=== PATIENT | female | born 1940 | race Caucasian/White ===

== ENCOUNTER 2016-09-09 12:31 | Observation (INO) | payer MEDICARE, BC ==
[~2016-09-09] VITALS: Ht 167.6 cm; Wt 90.0 kg
[~2016-09-09 12:31] MED LIST: ALEVE220 M2 PO; AMLODIPINE BESYL5 MG PO; AMLODIPINE10 MG PO; AMLODIPINE5 MG PO; AUGMENTIN500TAB PO; BACTRIM DS1 TAB PO; BENICAR20 MG PO; BYSTOLIC5 MG PO; CALCIUM600 M3 PO; CIPROFLOXACN500 MG PO; COREG6.25 MG PO; DUONEB IN; ENALAPRIL5 MG PO; FLEXERIL10 MG PO; FLUARIX QUADRIV1 INJ IM; FLULAVAL IM; FLUZONE SPLT1 M1 IM; FUROSEMIDE40 MG PO; GUANFACINE1 MG PO; HYDRALAZINE25 MG PO; IPRATROPIU0.5 MG/3 M IN; K-DUR/KLOR-CON10 MEQ PO; KEFLEX500 M1 PO; KLOR-CON 1010 ME1 PO; LASIX 40 MG TAB40 MG PO; LASIX 40 MG40 MG/TAB PO; LASIX20 MG PO; LEVOTHYROXIN50 MCG PO; LIPITOR10 MG PO; LIPITOR20 MG PO; LISINOPRIL10 MG PO; LORTAB 7.5 PO; LOSARTAN POT50 MG PO; MAXZIDE-2537.5 MG/TA PO; MEDROL4 M1 PO; METOPROL TAR25 M1 PO; MULTI FOR HER 50+ PO; NORVASC10 M1 PO; NORVASC10 MG PO; PANTOPRAZOLE SO40 MG PO; PERCOCET1 TA2 PO; POT CHLORIDE10 ME1 PO; PRILOSEC20 MG/CAP PO; PRILOSEC40 MG PO; PROMETHAZINE-DM PO; ROBITUSSIN DM OR; SYMBICORT 80-4.5MCG; SYMBICORT1 AE1 IN; TRAMADOL HCL50 MG PO; ULTRAM50 M1 PO; VITAMIN D400 UNI2 PO; ZITHROMAX250 MG PO; ZOVIRAX800 MG PO; [UNRECOGNIZED DRUG - OTHER]
[2016-09-09 13:19] LABS: HEMATOCRIT 42.2 % (37.0-47.0); HEMOGLOBIN 13.9 g/dl (12.0-16.0); IMMATURE GRANULOCYTES 0.2 % (0.0-1.0); MEAN CELL VOLUME 87.4 fL CALC (80.0-100.0); MEAN CORPUSCULAR HGB 28.8 pG CALC (26.0-32.0); MEAN CORPUSCULAR HGB CONC 32.9 g/L CALC (32.0-36.0); NEUT# 6.22 thou/uL (2.00-7.15); RED BLOOD COUNT 4.83 mill/uL (4.20-5.60); RED CELL DISTRI WIDTH 13.1 % (11.5-15.5)
[2016-09-09 13:34] LABS: ALKALINE PHOSPHATASE 88 u/l (38-126); ANION GAP 14 (6-22 (CALC)); BILIRUBIN, TOTAL 0.6 mg/dL (0.0-1.4); BUN 14 mg/dL (8-23); BUN/CREATININE RATIO 14 (12-20 (CALC)); CARBON DIOXIDE 30 mmol/l (22-30); CHLORIDE 92 mmol/l (95-108); GFR 54 ML/MIN (>=60 (CALC)); GFR FOR AFR.AMER. > 60 ML/MIN (>=60 (CALC)); GLUCOSE 96 mg/dL (82-115); POTASSIUM 4.2 mmol/l (3.5-5.1); SGOT/AST 28 u/l (9-36); SGPT/ALT 26 u/l (11-66); SODIUM 132 mmol/l (137-146); TOTAL PROTEIN 6.9 g/dL (6.3-8.2)
[2016-09-09 13:45] LABS: MYOGLOBIN 95 ng/mL (0 - 62)
[2016-09-09 15:00] LABS: URINE BILIRUBIN - DIPSTICK NEGATIVE (NEGATIVE); URINE BLOOD DIPSTICK NEGATIVE (NEGATIVE); URINE COLOR YELLOW; URINE GLUCOSE - DIPSTICK NEGATIVE (NEGATIVE); URINE KETONE NEGATIVE (NEGATIVE); URINE NITRITE - DIPSTICK NEGATIVE (Negative); URINE PROTEIN - DIPSTICK NEGATIVE (NEG-TRACE); URINE SPECIFIC GRAVITY <=1.005; URINE UROBILINOGEN - DIPSTICK 0.2 E.U./dL (0.2)
[2016-09-09 15:34] LABS: URINE CLARITY TURBID; URINE LEUK ESTERASE SMALL (NEGATIVE)
[2016-09-09 15:44] LABS: URINE BACTERIA RARE hpf; URINE SQUAMOUS EPITHELIAL CELL FEW EPI/hpf (0-FEW)
[2016-09-09 17:11] VITALS: BP 173/71
[2016-09-09 19:45] VITALS: BP 142/76
[2016-09-10 00:19] VITALS: BP 156/63
[2016-09-10 04:45] VITALS: BP 142/71
[2016-09-10 06:46] LABS: ANION GAP 12 (6-22 (CALC)); BUN 13 mg/dL (8-23); BUN/CREATININE RATIO 12 (12-20 (CALC)); CALCIUM 8.7 mg/dL (8.4-10.2); CALCULATED LDLCHOLESTEROL 117 mg/dL (62-129 (CALC)); CARBON DIOXIDE 29 mmol/l (22-30); CHLORIDE 94 mmol/l (95-108); GFR 54 ML/MIN (>=60 (CALC)); GFR FOR AFR.AMER. > 60 ML/MIN (>=60 (CALC)); GLUCOSE 98 mg/dL (82-115); HDL CHOLESTEROL 41 mg/dL (>=40); SODIUM 132 mmol/l (137-146); TOTAL CHOLESTEROL 191 mg/dl (0-199); TOTAL TRIGLYCERIDES 166 mg/dl (30-149); VLDL CHOLESTROL 33 mg/dl (0-48 (CALC))
[2016-09-10 06:53] LABS: HEMATOCRIT 41.7 % (37.0-47.0); HEMOGLOBIN 13.7 g/dl (12.0-16.0); IMMATURE GRANULOCYTES 0.4 % (0.0-1.0); MEAN CELL VOLUME 87.8 fL CALC (80.0-100.0); MEAN CORPUSCULAR HGB 28.8 pG CALC (26.0-32.0); MEAN CORPUSCULAR HGB CONC 32.9 g/L CALC (32.0-36.0); NEUT# 5.57 thou/uL (2.00-7.15); RED BLOOD COUNT 4.75 mill/uL (4.20-5.60); RED CELL DISTRI WIDTH 12.8 % (11.5-15.5)
[2016-09-10 08:32] VITALS: BP 135/70
[2016-09-10 14:00] VITALS: BP 161/81
== END 2016-09-10 15:15 | disposition home or self-care (01) ==
LOC: ENPENDDIS → ED 12:31 → ED-I 14:30 → ED 14:50 → MS2 14:51
PROVIDERS: Emergency Medicine; ADMIT Internal Medicine; ATTEND Internal Medicine
DX: R07.9 Chest pain, unspecified (principal); N39.0 Urinary tract infection, site not specified; I10 Essential (primary) hypertension; J44.9 Chronic obstructive pulmonary disease, unspecified; K21.9 Gastro-esophageal reflux disease without esophagitis; M25.512 Pain in left shoulder; R06.02 Shortness of breath

== ENCOUNTER 2016-12-22 20:10 | Emergency (ER) | payer MEDICARE, BC ==
[~2016-12-22] VITALS: Ht 167.6 cm; Wt 89.8 kg
[2016-12-22] MEDS ORDERED: VALSARTAN320 MG PO (20:54)
[2016-12-22] MEDS ORDERED: ALDACTONE25 MG PO (20:54)
[2016-12-22] MEDS ORDERED: LEVOTHYROXIN50 MCG PO (20:55)
[2016-12-22] MEDS ORDERED: COMBIVENT RESPIMAT IN (21:02)
[2016-12-22 21:15] LABS: URINE BILIRUBIN - DIPSTICK NEGATIVE (NEGATIVE); URINE BLOOD DIPSTICK NEGATIVE (NEGATIVE); URINE CLARITY CLEAR; URINE COLOR YELLOW; URINE GLUCOSE - DIPSTICK NEGATIVE (NEGATIVE); URINE KETONE NEGATIVE (NEGATIVE); URINE NITRITE - DIPSTICK NEGATIVE (Negative); URINE PROTEIN - DIPSTICK NEGATIVE (NEG-TRACE); URINE UROBILINOGEN - DIPSTICK 0.2 E.U./dL (0.2)
[2016-12-22 21:19] LABS: BARBITURATES NEGATIVE (NEGATIVE); COCAINE NEGATIVE (NEGATIVE); METHADONE NEGATIVE (NEGATIVE); OXCYCODONE NEGATIVE (NEGATIVE); TETRAHYDROCANNABIONOL NEGATIVE (NEGATIVE); TRICYLIC ANTIDEPRESSANTS NEGATIVE (NEGATIVE); URINE LEUK ESTERASE NEGATIVE (NEGATIVE)
[2016-12-22 21:47] LABS: HEMATOCRIT 45.3 % (37.0-47.0); HEMOGLOBIN 14.9 g/dl (12.0-16.0); IMMATURE GRANULOCYTES 0.3 % (0.0-1.0); MEAN CELL VOLUME 88.1 fL CALC (80.0-100.0); MEAN CORPUSCULAR HGB CONC 32.9 g/L CALC (32.0-36.0); NEUT# 7.22 thou/uL (2.00-7.15); RED BLOOD COUNT 5.14 mill/uL (4.20-5.60); RED CELL DISTRI WIDTH 12.8 % (11.5-15.5)
[2016-12-22 22:01] LABS: ALBUMIN 4.6 g/dL (3.2-5.0); ALKALINE PHOSPHATASE 103 u/l (38-126); ANION GAP 18 (6-22 (CALC)); BILIRUBIN, TOTAL 0.4 mg/dL (0.0-1.4); BUN 15 mg/dL (8-23); BUN/CREATININE RATIO 12 (12-20 (CALC)); CALCIUM 9.6 mg/dL (8.4-10.2); CARBON DIOXIDE 25 mmol/l (22-30); CHLORIDE 99 mmol/l (95-108); CREATININE 1.2 mg/dL (0.5-1.0); GFR 43 ML/MIN (>=60 (CALC)); GFR FOR AFR.AMER. 53 ML/MIN (>=60 (CALC)); GLUCOSE 92 mg/dL (82-115); POTASSIUM 4.2 mmol/l (3.5-5.1); SGOT/AST 25 u/l (9-36); SGPT/ALT 31 u/l (11-66); SODIUM 138 mmol/l (137-146); TOTAL PROTEIN 7.5 g/dL (6.3-8.2)
[2016-12-22 22:13] LABS: MYOGLOBIN 92 ng/mL (0 - 62)
[2016-12-22 23:30] VITALS: BP 160/78
== END 2016-12-22 23:30 | disposition home or self-care (01) ==
LOC: ED 20:10
PROVIDERS: Emergency Medicine
DX: R53.1 Weakness (principal); J44.9 Chronic obstructive pulmonary disease, unspecified; I10 Essential (primary) hypertension; K21.9 Gastro-esophageal reflux disease without esophagitis; K44.9 Diaphragmatic hernia without obstruction or gangrene

== ENCOUNTER 2017-06-05 23:05 | Emergency (ER) | payer MEDICARE, BC ==
[~2017-06-05] VITALS: Ht 167.6 cm; Wt 85.0 kg
[~2017-06-05 23:05] MED LIST changes: +ALDACTONE25 MG PO; +COMBIVENT RESPIMAT IN; +VALSARTAN320 MG PO
[2017-06-05 23:44] LABS: HEMATOCRIT 45.7 % (37.0-47.0); HEMOGLOBIN 15.2 g/dl (12.0-16.0); IMMATURE GRANULOCYTES 0.4 % (0.0-1.0); MEAN CELL VOLUME 87.9 fL CALC (80.0-100.0); MEAN CORPUSCULAR HGB 29.2 pG CALC (26.0-32.0); MEAN CORPUSCULAR HGB CONC 33.3 g/L CALC (32.0-36.0); NEUT# 8.26 thou/uL (2.00-7.15); RED BLOOD COUNT 5.2 mill/uL (4.20-5.60); RED CELL DISTRI WIDTH 12.6 % (11.5-15.5)
[2017-06-05 23:50] LABS: ALBUMIN 4.7 g/dL (3.2-5.0); ALKALINE PHOSPHATASE 103 u/l (38-126); ANION GAP 17 (6-22 (CALC)); BILIRUBIN, TOTAL 0.5 mg/dL (0.0-1.4); BUN 13 mg/dL (8-23); BUN/CREATININE RATIO 11 (12-20 (CALC)); CALCIUM 10.7 mg/dL (8.4-10.2); CARBON DIOXIDE 28 mmol/l (22-30); CHLORIDE 94 mmol/l (95-108); CREATININE 1.2 mg/dL (0.5-1.0); GFR 43 ML/MIN (>=60 (CALC)); GFR FOR AFR.AMER. 53 ML/MIN (>=60 (CALC)); GLUCOSE 123 mg/dL (82-115); POTASSIUM 4.6 mmol/l (3.5-5.1); SGOT/AST 29 u/l (9-36); SGPT/ALT 33 u/l (11-66); SODIUM 135 mmol/l (137-146); TOTAL PROTEIN 7.6 g/dL (6.3-8.2)
[2017-06-06 00:02] LABS: MYOGLOBIN 123 ng/mL (0 - 62)
[2017-06-06] MEDS ORDERED: ZPAK PO (01:24)
[2017-06-06] MEDS ORDERED: MEDDOSEPAK PO (01:24)
[2017-06-06 01:55] VITALS: BP 182/89
== END 2017-06-06 01:55 | disposition home or self-care (01) ==
LOC: ED 23:05
PROVIDERS: Emergency Medicine
DX: J04.0 Acute laryngitis (principal); J06.9 Acute upper respiratory infection, unspecified; R05 Cough; R06.02 Shortness of breath; R49.0 Dysphonia; I10 Essential (primary) hypertension

== ENCOUNTER 2018-04-27 11:22 | Emergency (ER) | payer MEDICARE, BC ==
[~2018-04-27] VITALS: Ht 167.6 cm; Wt 88.6 kg
[~2018-04-27 11:22] MED LIST changes: +ASPIRIN81 MG PO; +LEVAQUIN750 M1 PO; +MEDDOSEPAK PO; +ZPAK PO
[2018-04-27] MEDS ORDERED: LOSARTAN POT100 MG PO (11:43)
[2018-04-27 12:36] LABS: HEMATOCRIT 42.4 % (37.0-47.0); HEMOGLOBIN 13.8 g/dl (12.0-16.0); IMMATURE GRANULOCYTES 0.3 % (0.0-5.0); MEAN CELL VOLUME 86.7 fL CALC (80.0-100.0); MEAN CORPUSCULAR HGB 28.2 pG CALC (26.0-32.0); MEAN CORPUSCULAR HGB CONC 32.5 g/L CALC (32.0-36.0); NEUT# 8.69 thou/uL (2.00-7.15); RED BLOOD COUNT 4.89 mill/uL (4.20-5.60); RED CELL DISTRI WIDTH 13.1 % (11.5-15.5)
[2018-04-27 12:36] LABS: URINE BILIRUBIN - DIPSTICK NEGATIVE (NEGATIVE); URINE BLOOD DIPSTICK NEGATIVE (NEGATIVE); URINE COLOR YELLOW; URINE GLUCOSE - DIPSTICK NEGATIVE (NEGATIVE); URINE KETONE NEGATIVE (NEGATIVE); URINE LEUK ESTERASE TRACE (NEGATIVE); URINE NITRITE - DIPSTICK NEGATIVE (Negative); URINE PROTEIN - DIPSTICK NEGATIVE (NEG-TRACE); URINE UROBILINOGEN - DIPSTICK 0.2 E.U./dL (0.2)
[2018-04-27 12:48] LABS: URINE CLARITY CLEAR
[2018-04-27 12:49] LABS: ALBUMIN 4.2 g/dL (3.2-5.0); BILIRUBIN, TOTAL 0.9 mg/dL (0.0-1.4); CREATININE 1.1 mg/dL (0.5-1.0); POTASSIUM 4.8 mmol/l (3.5-5.1); TOTAL PROTEIN 6.9 g/dL (6.3-8.2)
[2018-04-27] MEDS ORDERED: MAGNESIUM296 ML/BTL PO (12:57)
[2018-04-27] MEDS ORDERED: MIRALAX3350 N1 PO (12:57)
[2018-04-27 13:31] VITALS: BP 170/87
== END 2018-04-27 13:30 | disposition home or self-care (01) ==
LOC: ED 11:22
PROVIDERS: Family Medicine
DX: K59.00 Constipation, unspecified (principal); R10.84 Generalized abdominal pain; R06.02 Shortness of breath; I10 Essential (primary) hypertension; K64.4 Residual hemorrhoidal skin tags

== ENCOUNTER → 2018-08-20 | Outpatient (REF) | payer MEDICARE, BC ==
[~2018-08-20] MED LIST changes: +LOSARTAN POT100 MG PO; +MAGNESIUM296 ML/BTL PO; +MIRALAX3350 N1 PO
[2018-08-20 09:28] LABS: HEMATOCRIT 43.1 % (37.0-47.0); HEMOGLOBIN 13.5 g/dl (12.0-16.0); MEAN CELL VOLUME 90.9 fL CALC (80.0-100.0); MEAN CORPUSCULAR HGB 28.5 pG CALC (26.0-32.0); MEAN CORPUSCULAR HGB CONC 31.3 g/L CALC (32.0-36.0); RED BLOOD COUNT 4.74 mill/uL (4.20-5.60); RED CELL DISTRI WIDTH 13.4 % (11.5-15.5)
[2018-08-20 09:35] LABS: ALKALINE PHOSPHATASE 87 u/l (38-126); ANION GAP 14 (6-22 (CALC)); BILIRUBIN, TOTAL 0.5 mg/dL (0.0-1.4); BUN 15 mg/dL (8-23); BUN/CREATININE RATIO 17 (12-20 (CALC)); CALCULATED LDLCHOLESTEROL 130 mg/dL (62-129 (CALC)); CARBON DIOXIDE 34 mmol/l (22-30); CHLORIDE 94 mmol/l (95-108); CHOLESTEROL HDL RATIO 3.7 (<4.4 (CALC)); CREATININE 0.9 mg/dL (0.5-1.0); GFR 60 ML/MIN (>=60 (CALC)); GFR FOR AFR.AMER. > 60 ML/MIN (>=60 (CALC)); HDL CHOLESTEROL 54 mg/dL (>=40); POTASSIUM 4.4 mmol/l (3.5-5.1); SGOT/AST 20 u/l (9-36); SODIUM 138 mmol/l (137-146); TOTAL CHOLESTEROL 201 mg/dl (0-199); TOTAL PROTEIN 6.2 g/dL (6.3-8.2); TOTAL TRIGLYCERIDES 87 mg/dl (30-149); VLDL CHOLESTROL 17 mg/dl (0-48 (CALC))
== END | disposition home or self-care (01) ==
LOC: LAB 07:52
PROVIDERS: ATTEND Internal Medicine
DX: E03.9 Hypothyroidism, unspecified (principal); I10 Essential (primary) hypertension; J44.9 Chronic obstructive pulmonary disease, unspecified; J96.11 Chronic respiratory failure with hypoxia

== ENCOUNTER 2018-09-21 12:59 | Emergency (ER) | payer MEDICARE, BC ==
[~2018-09-21] VITALS: Ht 167.6 cm; Wt 90.0 kg
[2018-09-21 13:47] LABS: HEMATOCRIT 39.8 % (37.0-47.0); HEMOGLOBIN 12.2 g/dl (12.0-16.0); IMMATURE GRANULOCYTES 0.4 % (0.0-5.0); MEAN CELL VOLUME 91.3 fL CALC (80.0-100.0); MEAN CORPUSCULAR HGB CONC 30.7 g/L CALC (32.0-36.0); NEUT# 6.1 thou/uL (2.00-7.15); RED BLOOD COUNT 4.36 mill/uL (4.20-5.60)
[2018-09-21 13:58] LABS: ALKALINE PHOSPHATASE 68 u/l (38-126); ANION GAP 12 (6-22 (CALC)); BILIRUBIN, TOTAL 0.5 mg/dL (0.0-1.4); BUN 16 mg/dL (8-23); BUN/CREATININE RATIO 17 (12-20 (CALC)); CARBON DIOXIDE 33 mmol/l (22-30); CHLORIDE 93 mmol/l (95-108); CREATININE 0.9 mg/dL (0.5-1.0); GFR 60 ML/MIN (>=60 (CALC)); GFR FOR AFR.AMER. > 60 ML/MIN (>=60 (CALC)); POTASSIUM 4.2 mmol/l (3.5-5.1); SGOT/AST 35 u/l (9-36); SODIUM 133 mmol/l (137-146); TOTAL PROTEIN 6.5 g/dL (6.3-8.2)
[2018-09-21 15:27] LABS: URINE BILIRUBIN - DIPSTICK NEGATIVE (NEGATIVE); URINE BLOOD DIPSTICK NEGATIVE (NEGATIVE); URINE COLOR YELLOW; URINE GLUCOSE - DIPSTICK NEGATIVE (NEGATIVE); URINE KETONE NEGATIVE (NEGATIVE); URINE LEUK ESTERASE NEGATIVE (NEGATIVE); URINE NITRITE - DIPSTICK NEGATIVE (Negative); URINE PH 7.5 (4.5-8.0); URINE PROTEIN - DIPSTICK NEGATIVE (NEG-TRACE); URINE UROBILINOGEN - DIPSTICK 0.2 E.U./dL (0.2)
[2018-09-21] MEDS ORDERED: KEFLEX500 M1 PO (15:45)
[2018-09-21 16:27] VITALS: BP 154/60
== END 2018-09-21 16:27 | disposition home or self-care (01) ==
LOC: ED 12:59
PROVIDERS: Emergency Medicine
DX: N39.0 Urinary tract infection, site not specified (principal); R53.1 Weakness; R20.2 Paresthesia of skin; R06.02 Shortness of breath; I10 Essential (primary) hypertension

== ENCOUNTER 2018-10-05 23:54 | Emergency (ER) | payer MEDICARE, BC ==
[~2018-10-05] VITALS: Ht 167.6 cm; Wt 90.9 kg
[2018-10-06 00:48] LABS: HEMOGLOBIN 12.6 g/dl (12.0-16.0); IMMATURE GRANULOCYTES 0.3 % (0.0-5.0); MEAN CELL VOLUME 88.4 fL CALC (80.0-100.0); MEAN CORPUSCULAR HGB 28.6 pG CALC (26.0-32.0); MEAN CORPUSCULAR HGB CONC 32.3 g/L CALC (32.0-36.0); NEUT# 6.64 thou/uL (2.00-7.15); RED BLOOD COUNT 4.41 mill/uL (4.20-5.60); RED CELL DISTRI WIDTH 12.8 % (11.5-15.5)
[2018-10-06 01:23] LABS: ALBUMIN 4.4 g/dL (3.2-5.0); ALKALINE PHOSPHATASE 94 u/l (38-126); ANION GAP 14 (6-22 (CALC)); BILIRUBIN, TOTAL 0.5 mg/dL (0.0-1.4); BUN 20 mg/dL (8-23); BUN/CREATININE RATIO 23 (12-20 (CALC)); CARBON DIOXIDE 31 mmol/l (22-30); CHLORIDE 89 mmol/l (95-108); CREATININE 0.9 mg/dL (0.5-1.0); GFR 60 ML/MIN (>=60 (CALC)); GFR FOR AFR.AMER. > 60 ML/MIN (>=60 (CALC)); POTASSIUM 4.5 mmol/l (3.5-5.1); SGOT/AST 29 u/l (9-36); SODIUM 130 mmol/l (137-146); TOTAL PROTEIN 6.9 g/dL (6.3-8.2)
[2018-10-06 01:27] LABS: URINE BILIRUBIN - DIPSTICK NEGATIVE (NEGATIVE); URINE BLOOD DIPSTICK NEGATIVE (NEGATIVE); URINE COLOR YELLOW; URINE GLUCOSE - DIPSTICK NEGATIVE (NEGATIVE); URINE KETONE NEGATIVE (NEGATIVE); URINE LEUK ESTERASE NEGATIVE (NEGATIVE); URINE NITRITE - DIPSTICK NEGATIVE (Negative); URINE PH 7.5 (4.5-8.0); URINE PROTEIN - DIPSTICK NEGATIVE (NEG-TRACE); URINE UROBILINOGEN - DIPSTICK 0.2 E.U./dL (0.2)
[2018-10-06 01:36] LABS: MYOGLOBIN 70 ng/mL (0 - 62)
[2018-10-06 04:00] VITALS: BP 155/65
== END 2018-10-06 04:15 | disposition home or self-care (01) ==
LOC: ED 23:54
PROVIDERS: Emergency Medicine
DX: J44.1 Chronic obstructive pulmonary disease with (acute) exacerbation (principal); I50.9 Heart failure, unspecified; I10 Essential (primary) hypertension; R06.02 Shortness of breath

== ENCOUNTER 2019-08-26 16:55 | Inpatient (IN) | payer MEDICARE, BC ==
[~2019-08-26] VITALS: Ht 167.6 cm; Wt 90.0 kg
--- NOTE | 2019-08-26 16:59 | NUR ---
PT TO ROOM VIA WC FOR BEDSIDE TRIAGE
[2019-08-26] MEDS ORDERED: AZITHROMYCIN500 MG PO (17:24)
--- NOTE | 2019-08-26 17:30 | NUR ---
PUREWICK PLACED AT THIS TIME; PT STATES SOB HAS IMPROVED; VSS; FAMILY AT BEDSIDE; DENIES ANY NEEDS AT THIS TIME; PT ADVISED OF CONTINUED WAIT TIME; WILL CONTINUE TO MONITOR
[2019-08-26 17:59] LABS: HEMATOCRIT 43.7 % (37.0-47.0); HEMOGLOBIN 13.8 g/dl (12.0-16.0); IMMATURE GRANULOCYTES 0.3 % (0.0-5.0); MEAN CELL VOLUME 89.5 fL CALC (80.0-100.0); MEAN CORPUSCULAR HGB 28.3 pG CALC (26.0-32.0); MEAN CORPUSCULAR HGB CONC 31.6 g/L CALC (32.0-36.0); NEUT# 4.28 thou/uL (2.00-7.15); RED BLOOD COUNT 4.88 mill/uL (4.20-5.60)
--- NOTE | 2019-08-26 18:30 | NUR ---
PT RESTING ON STRETCHER; NO S/S OF DISTRESS NOTED; VSS; PT DENIES ANY NEEDS AT THIS TIME; WILL CONTINUE TO MONITOR
[2019-08-26 18:42] LABS: ALBUMIN 4.1 g/dL (3.2-5.0); ALKALINE PHOSPHATASE 97 u/l (38-126); ANION GAP 10 (6-22 (CALC)); BILIRUBIN, TOTAL 0.4 mg/dL (0.0-1.4); BUN 15 mg/dL (8-23); BUN/CREATININE RATIO 16 (12-20 (CALC)); CARBON DIOXIDE 35 mmol/l (22-30); CHLORIDE 93 mmol/l (95-108); CREATININE 0.9 mg/dL (0.5-1.0); GFR 60 ML/MIN (>=60 (CALC)); GFR FOR AFR.AMER. > 60 ML/MIN (>=60 (CALC)); POTASSIUM 3.8 mmol/l (3.5-5.1); SGOT/AST 24 u/l (9-36); SODIUM 134 mmol/l (137-146); TOTAL PROTEIN 6.7 g/dL (6.3-8.2)
--- NOTE | 2019-08-26 18:49 | NUR ---
REPORT TO CAREY, RN
--- NOTE | 2019-08-26 19:05 | NUR ---
A/O F DENIES CP OCC TRACK ANNOUNCER COUGH W/P/D SKIN SR NO ECTOPY
[2019-08-26] MEDS ORDERED: GABAPENTIN100 MG PO (19:30)
--- NOTE | 2019-08-26 20:00 | NUR ---
PHONE REPORT TO NURSE PATRICIA
--- NOTE | 2019-08-26 20:05 | NUR ---
TO ICU2 IN STABLE CONDITION
[2019-08-26 20:15] VITALS: BP 170/76
--- NOTE | 2019-08-26 20:15 | NUR ---
REPORT GIVEN BY CAREY RN FROM ER. PATIENT ARRIVED VIA STRECHER WITH FAMILY AT THE BEDSIDE. RESP LABORED AND EVEN. PRODUCTIVE COUGH PRESENT WITH GREEN COLORED SPUTUM, 2L O2 VIA NC. PUREWICK IN PLACE, CLEAR YELLOW URINE DRAINING. PATIENT STATES WHILING URINIATING SHE HAS BURNING. . ORIENTED TO ROOM, CALL LIGHT, AND BED. FALL PRECAUTIONS IN PLACE. ALLERGY BAND IN PLACE. MANUEL PLACED ON PATIENT. PLAN OF CARE DISCUSSED. PATIENT INFORMED TO CALL WITH ANY QUESTIONS OR CONCERNS.
--- NOTE | 2019-08-26 20:16 | NUR ---
PATIENT ARRIVED AT 2014
[2019-08-26 20:52] LABS: URINE BILIRUBIN - DIPSTICK NEGATIVE (NEGATIVE); URINE BLOOD DIPSTICK NEGATIVE (NEGATIVE); URINE COLOR YELLOW; URINE GLUCOSE - DIPSTICK NEGATIVE (NEGATIVE); URINE KETONE NEGATIVE (NEGATIVE); URINE LEUK ESTERASE NEGATIVE (NEGATIVE); URINE NITRITE - DIPSTICK NEGATIVE (Negative); URINE PROTEIN - DIPSTICK NEGATIVE (NEG-TRACE); URINE UROBILINOGEN - DIPSTICK 0.2 E.U./dL (0.2)
--- NOTE | 2019-08-26 22:30 | NUR ---
DAUGHTER CALLED AND LEFT PHONE NUMBER FOR NURSE TO CALL IF NEEDED. CARMELLA BRADY [phone]
[2019-08-27] VITALS: BP 169/72
--- NOTE | 2019-08-27 00:26 | NUR ---
PURE WICK LEAKED, PATIENT CLEANED UP. RESP LABORED AND EVEN. PATIENT STATES SHE IS STILL HAVING SOB, O2 SAT 98%.
[2019-08-27 04:00] VITALS: BP 176/70
--- NOTE | 2019-08-27 04:27 | NUR ---
PATIENT UP TO BSC, SHE HAD A LARGE BM. RESP EVEN AND UNLABORED. NO S/S OF DISTRESS NOTED.
[2019-08-27 05:00] LABS: HEMATOCRIT 47.5 % (37.0-47.0); HEMOGLOBIN 14.8 g/dl (12.0-16.0); IMMATURE GRANULOCYTES 0.7 % (0.0-5.0); MEAN CORPUSCULAR HGB CONC 31.2 g/L CALC (32.0-36.0); NEUT# 6.35 thou/uL (2.00-7.15); RED BLOOD COUNT 5.28 mill/uL (4.20-5.60); RED CELL DISTRI WIDTH 12.9 % (11.5-15.5)
[2019-08-27 05:24] LABS: ALBUMIN 4.2 g/dL (3.2-5.0); ALKALINE PHOSPHATASE 92 u/l (38-126); ANION GAP 12 (6-22 (CALC)); BILIRUBIN, TOTAL 0.4 mg/dL (0.0-1.4); BUN 13 mg/dL (8-23); BUN/CREATININE RATIO 17 (12-20 (CALC)); CARBON DIOXIDE 32 mmol/l (22-30); CHLORIDE 94 mmol/l (95-108); CREATININE 0.8 mg/dL (0.5-1.0); GFR > 60 ML/MIN (>=60 (CALC)); GFR FOR AFR.AMER. > 60 ML/MIN (>=60 (CALC)); SGOT/AST 23 u/l (9-36); SODIUM 133 mmol/l (137-146); TOTAL PROTEIN 6.8 g/dL (6.3-8.2)
[2019-08-27 05:45] LABS: POTASSIUM 4.6 mmol/l (3.5-5.1)
--- NOTE | 2019-08-27 07:40 | NUR ---
PT RESTING IN BED. NO DISTRESS NOTED. WILL CONTINUE TO MONITOR.
[2019-08-27 08:00] VITALS: BP 188/84
--- NOTE | 2019-08-27 10:00 | NUR ---
DR. QUIROZ AT BEDSIDE TO ASSESS PT. FAMILY AT BEDSIDE. ALL QUESTIONS ANSWERED. NO NEEDS AT THIS TIME
[2019-08-27] MEDS ORDERED: DIOVAN160 MG PO (11:20)
[2019-08-27] MEDS ORDERED: SYMBICORT1 AE1 IN (11:21)
[2019-08-27] MEDS ORDERED: LEVOTHYROXIN50 MCG PO (11:21)
[2019-08-27 12:00] VITALS: BP 172/78
--- NOTE | 2019-08-27 12:40 | NUR ---
PT RESTING IN BED WITH EYES CLOSED. NO DISTRESS NOTED. FAMILY AT BEDSIDE. DENIES PAIN AT THIS TIME. WILL CONTINUE TO MONITOR.
[2019-08-27 16:00] VITALS: BP 153/72
--- NOTE | 2019-08-27 16:14 | NUR ---
PT RESTING IN BED. NO DISTRESS NOTED. VOIDING VIA BEDSIDE COMMODE. AMBULATING X1 ASSIST. WILL CONTINUE TO MONITOR
--- NOTE | 2019-08-27 19:00 | NUR ---
REPORT RECEIVED FROM DAY NURSE. PT RESTING IN BED W/TV ON. FAMILY JUST LEFT. NO S/O DISTRESS, PT DENIES ANY NEEDS. JOHNSON CATHETER DRAINING TO GRAVITY YELLOW URINE. CALL LIGHT AT SIDE W/IN REACH.
--- NOTE | 2019-08-27 20:08 | NUR ---
PT ASSISTED TO BSC AND BACK TO BED. ASSESSMENT COMPLETED AT THIS TIME. LUNG SOUNDS WHEEZING THROUGHOUT. ABD HYPERACTIVE W/TENDERNESS TO MID UPPER ABD. PT REPORTS LAST BM THIS AM TO BE NORMAL. MANUEL HOS[employer] ARE ON. 02NC @4L, TURNED TO 2L PER PT AND FAMILY MEMBER CONFIRMING THAT PT IS ON 2L@HOME. WILL MONITOR FOR OXYGEN SAT LEVELS, 02SAT LEVEL AT 98% AT THIS TIME. FAMILY X1 AT BEDSIDE STATING SHE IS STAYING OVERNIGHT, PILLOW PROVIDED, SITTING IN RECLINER, PT IS IN BED, LIGHTS ARE OFF AND TV ON. CALL LIGHT IN PT HAND AND SHE HAS BEEN INSTRUCTED TO CALL NEEDS ARISE.
[2019-08-27 20:09] VITALS: BP 159/74
--- NOTE | 2019-08-27 22:00 | NUR ---
pt medicated as orders provide. icewater refreshed at this time. resp in to see pt for duoneb treatment. oxygen sat 94% on 2Lnc.
[2019-08-28] VITALS (8 sets, daily range): BP systolic 148–179; BP diastolic 66–92
--- NOTE | 2019-08-28 | NUR ---
V/S ASSESSED. PT WAS SLEEPING, BUT AWOKE TO MY ENTERING ROOM. FAMILY ASLEEP IN RECLINER AT BEDSIDE. PT DENIES ANY OTHER NEEDS AT THIS TIME. CALL LIGHT IS WIN REACH OF PT.
--- NOTE | 2019-08-28 02:26 | NUR ---
Noises heard from room, upon entering room, pt was sitting on bsc and family member was assisting pt. Assistance was offered, they both denied need for assistance, stating they were using the bathroom and getting a snack. No s/o distress noted at this time. Will continue to monitor.
--- NOTE | 2019-08-28 05:47 | NUR ---
PT UP TO BSC. V/S ASSESSED AND PT MEDICATED AND ASSISTED BACK TO BED. GRANDDAUGHTER LEAVING AT THIS TIME. PT REPORTS FEELING AND SLEEPING A LITTLE BETTER LAST NIGHT, BUT APPEARED SOB ON EXERTION.
--- NOTE | 2019-08-28 07:18 | NUR ---
REPORT RECEIVED FROM NIGHT RN. PT RESTING IN BED WITH EYES CLOSED. NO DISTRESS NOTED. WILL CONTINUE TO MONITOR.
--- NOTE | 2019-08-28 10:25 | NUR ---
DR. QUIROZ AT BEDSIDE TO ASSESS PT
--- NOTE | 2019-08-28 12:25 | NUR ---
PT RESTING IN CHAIR. FAMILY AT BEDSIDE. WILL CONTINUE TO MONITOR. NO DISTRESS NOTED
--- NOTE | 2019-08-28 14:15 | NUR ---
PER DR. QUIROZ PT PLACED ON RA AND OXYGEN LEVEL OBSERVED. PY OXYGEN SAT 92-94%
--- NOTE | 2019-08-28 14:30 | NUR ---
PT TRANSFERRED FROM ICU VIA WC WITH STAFF. IV SITE IS FREE FROM REDNESS OR EDEMA. ALL BELONGINGS WITH PT FAMILY IN THE ROOM.
--- NOTE | 2019-08-28 14:45 | NUR ---
PT TRANSFERED TO [facility] IN WHEELCHAIR
--- NOTE | 2019-08-28 16:33 | NUR ---
PT SITTING IN BED WITH FAMILY IN THE ROOM. IV SITE IS FREE FROM REDNESS OR EDEMA.
--- NOTE | 2019-08-28 18:39 | NUR ---
CHECKED BP ON PT IS 179/83 HRT RATE IS 110 PT WAS TRYING TO FIX HER BED TO GET IT UP, ASYMPTOMATIC. CONTINUE TO OSBERVE AND MONITOR.
--- NOTE | 2019-08-28 19:20 | NUR ---
PT SITTING ON SIDE OF THE BED STATING SHE JUST USED BSC. NO S/O DISTRESS AT THIS TIME. ASSESSMENT COMPLETED AT THIS TIME. LUNG SOUNDS ARE CLEAR/DIM FOR ME AT THIS TIME. PT DENIES ANY OTHER NEEDS AND PT HAS BEEN ENCOURAGED TO CALL NEEDS ARISE, CALL LIGHT W/IN REACH.
--- NOTE | 2019-08-28 21:45 | NUR ---
PT MEDICATED ORDERS PROVIDE AND ASSISTED TO BSC AND BACK TO BED. RESP IN TO SEE PT FOR BREATHING TREATMENT. PT LEFT ON SIDE OF THE BED RECEIVING BREATHING TREATMENT. INSTRUCTED PT TO CALL ASSISTANCE IS NEEDED. CALL LIGHT W/IN REACH.
--- NOTE | 2019-08-29 01:25 | NUR ---
PT SITTING ON BSC, DENIES ANY NEED FOR ASSISTANCE AT THIS TIME.
--- NOTE | 2019-08-29 01:32 | NUR ---
ED CALLED TO REPORT PIPE CUTTER NOT READING, PT IS IN BED AWAKE, PIPE CUTTER LEADS PLACED AND ED CONFIRMED GOOD READING.
[2019-08-29 04:00] VITALS: BP 156/83
--- NOTE | 2019-08-29 04:12 | NUR ---
BIOINFORMATICS SUPPORT SPECIALIST REPOSITIONED. PT WAS TRYING TO SLEEP, AIDE WAS JUST IN TO OBTAIN V/S.
--- NOTE | 2019-08-29 05:44 | NUR ---
PT MEDICATED ORDERS PROVIDE DENIES ANY OTHER NEEDS. CALL LIGHT W/IN REACH.
[2019-08-29 07:30] VITALS: BP 155/76
--- NOTE | 2019-08-29 07:30 | NUR ---
ASSESSMENT IS COMPLETED: IV SITE IS FREE FROM REDNESS OR EDEMA. HR IS REG,PULSES ARE STRONG X4, ABD IS SOFT WITH ACTIVE BS. BREATH SOUNDS ARE CLEAR AND DIMINISHED. O2 @ 2LITERS WITH NC. TELE MONITOR IN PLACE. CONTINUE TO OBSERVE AND MONITOR. PT BECOMES SOB ON EXERTION.
--- NOTE | 2019-08-29 08:40 | NUR ---
OT STAFF IN TO VISIT WITH PT.
--- NOTE | 2019-08-29 10:00 | NUR ---
PT IN TO VISIT WITH PT.
--- NOTE | 2019-08-29 10:54 | NUR ---
SWABBED PT FOR STREP . SENT FOR TESTING.
[2019-08-29 11:15] VITALS: BP 135/60
--- NOTE | 2019-08-29 12:00 | NUR ---
PT HAS BEEN RELAXING IN THE CHAIR., WITH FAMILY IN THE ROOM. NO DISTRESS NOTED. IV SITE IS FREE FROM REDNESS OR EDEMA.
[2019-08-29 14:55] VITALS: BP 143/74
--- NOTE | 2019-08-29 16:00 | NUR ---
PT IS RELAXING IN BED WITH NO DISTRESS NOTED. IV SITE IS FREE FROM REDNESS OR EDEMA. FAMILY IN THE ROOM. CONTINUE TO OSBERVE AND MONITOR.
[2019-08-29 19:20] VITALS: BP 143/65
--- NOTE | 2019-08-29 19:59 | NUR ---
PT SITTING IN BED WATCHING TV. A&O X3. NO DISTRESS NOTED. SLIGHT WHEEZING HEARD UPON AUSCULTATION. O2 VIA NC @2L IN PLACE. NO OTHER NEEDS AT THIS TIME. DISCUSSED POC. ASSESSMENT COMPLETED. CALL LIGHT IN REACH. CONTINUE TO MONITOR.
--- NOTE | 2019-08-30 00:04 | NUR ---
PT SLEEPING IN BED. NO DISTRESS NOTED. RESP EVEN AND UNLABORED. CONTINUE TO MONITOR.
[2019-08-30 04:52] VITALS: BP 150/81
[2019-08-30 05:25] LABS: HEMATOCRIT 48.4 % (37.0-47.0); HEMOGLOBIN 14.8 g/dl (12.0-16.0); MEAN CELL VOLUME 90.3 fL CALC (80.0-100.0); MEAN CORPUSCULAR HGB 27.6 pG CALC (26.0-32.0); MEAN CORPUSCULAR HGB CONC 30.6 g/L CALC (32.0-36.0); RED BLOOD COUNT 5.36 mill/uL (4.20-5.60); RED CELL DISTRI WIDTH 12.8 % (11.5-15.5)
[2019-08-30 05:48] LABS: ANION GAP 9 (6-22 (CALC)); BUN 24 mg/dL (8-23); BUN/CREATININE RATIO 24 (12-20 (CALC)); CARBON DIOXIDE 38 mmol/l (22-30); CHLORIDE 90 mmol/l (95-108); GFR 53 ML/MIN (>=60 (CALC)); GFR FOR AFR.AMER. > 60 ML/MIN (>=60 (CALC)); POTASSIUM 4.3 mmol/l (3.5-5.1); SODIUM 132 mmol/l (137-146)
[2019-08-30 11:02] VITALS: BP 120/71
--- NOTE | 2019-08-30 11:25 | NUR ---
Physical Therapy Visit Note Patient identified by name and date of . PT Management: 1. Active range of motion of both UE x 10 repetitions. 2. Actice range of motion of both LE x 10 repetitions. 3. Sit and stand with minimal assist x 4 repetitions 4. Transfer training 5. Gait training with three-wheeled walker inside the room (20 to 30 feet). Patient was able to perform all exercises with minimal fatigue. Minimal unsteadiness observed while trying to sit and stand, transfer and walk. SO2 remained above 88% throughout physical therapy session. Patient advised to ask for assistance when transferring. Patient verbalized understanding. Call button left near the patient after physical therapy session.
[2019-08-30] MEDS ORDERED: PREDNISONE10 MG PO (12:06)
--- NOTE | 2019-08-30 14:38 | NUR ---
DISCHARGE INSTRUCTIONS REVIEWED WITH PT AND DAUGHTER AND BOTH IN AGREEMENT WITH THE PLANS. IV REMOVED WITHOUT PROBLEMS AND SITE INTACT. QUESTIONS ANSWERED AND SUPPORT GIVEN. PT DISCHARGED BY WHEELCHAIR TO FAMILY CAR AND HER HOME O2 TANK IN USE AT 2L NASAL CANULA.
== END 2019-08-30 14:40 | disposition home health service (06) | DRG 190 ==
LOC: ED 16:55 → ED-I 18:51 → ED 19:03 → ICU 19:04 → MS2 08-27 14:15
PROVIDERS: Family Medicine; Internal Medicine; ADMIT Internal Medicine; ATTEND Internal Medicine
DX: J43.9 Emphysema, unspecified (principal); J96.22 Acute and chronic respiratory failure with hypercapnia; J96.21 Acute and chronic respiratory failure with hypoxia; I13.0 Hypertensive heart and chronic kidney disease with heart failure and stage 1 through stage 4 chronic kidney disease, or unspecified chronic kidney disease; I50.9 Heart failure, unspecified; N18.2 Chronic kidney disease, stage 2 (mild); D72.829 Elevated white blood cell count, unspecified; T38.0X5A Adverse effect of glucocorticoids and synthetic analogues, initial encounter; E03.9 Hypothyroidism, unspecified; K21.9 Gastro-esophageal reflux disease without esophagitis; G62.9 Polyneuropathy, unspecified; E66.01 Morbid (severe) obesity due to excess calories; G25.81 Restless legs syndrome; Z99.81 Dependence on supplemental oxygen; Z87.891 Personal history of nicotine dependence; Z68.32 Body mass index [BMI] 32.0-32.9, adult

== ENCOUNTER 2020-11-13 22:57 | Observation (INO) | payer MEDICARE, BC ==
[~2020-11-13] VITALS: Ht 167.6 cm; Wt 86.0 kg
[~2020-11-13 22:57] MED LIST changes: +AZITHROMYCIN500 MG PO; +DIOVAN160 MG PO; +GABAPENTIN100 MG PO; +PREDNISONE10 MG PO
--- NOTE | 2020-11-13 22:57 | NUR ---
PT ARRIVED VIA EMS AND WAS IMMEDIATELY TAKEN TO THE TREATMENT AREA IN [facility] ON 2 L NC
--- NOTE | 2020-11-14 | NUR ---
SON AT BEDSIDE AND HAS BEEN UPDATED ON POC.
[2020-11-14 00:06] LABS: HEMATOCRIT 44.8 % (37.0-47.0); HEMOGLOBIN 13.9 g/dl (12.0-16.0); IMMATURE GRANULOCYTES 0.4 % (0.0-5.0); MEAN CELL VOLUME 88.7 fL CALC (80.0-100.0); MEAN CORPUSCULAR HGB 27.5 pG CALC (26.0-32.0); NEUT# 7.54 thou/uL (2.00-7.15); RED BLOOD COUNT 5.05 mill/uL (4.20-5.60); RED CELL DISTRI WIDTH 13.5 % (11.5-15.5)
[2020-11-14 00:27] LABS: ALBUMIN 3.8 g/dL (3.2-5.0); ALKALINE PHOSPHATASE 112 u/l (38-126); ANION GAP 11 (6-22 (CALC)); BILIRUBIN, TOTAL 0.6 mg/dL (0.0-1.4); BUN 23 mg/dL (8-23); BUN/CREATININE RATIO 23 (12-20 (CALC)); CARBON DIOXIDE 34 mmol/l (22-30); CHLORIDE 91 mmol/l (95-108); GFR 53 ML/MIN (>=60 (CALC)); GFR FOR AFR.AMER. > 60 ML/MIN (>=60 (CALC)); SGOT/AST 21 u/l (9-36); SODIUM 132 mmol/l (137-146); TOTAL PROTEIN 6.5 g/dL (6.3-8.2)
[2020-11-14 00:29] LABS: POTASSIUM 4.2 mmol/l (3.5-5.1)
[2020-11-14 00:36] LABS: MYOGLOBIN 61 ng/mL (0 - 62)
--- NOTE | 2020-11-14 01:15 | NUR ---
BRITANY PLACED FOR PT TO VOID
--- NOTE | 2020-11-14 02:12 | NUR ---
PT READY FOR ADMISSION
--- NOTE | 2020-11-14 02:17 | NUR ---
PROVIDED UPDATE TO SON ON MOTHER'S CONDITION [phone] AILYN AYON
[2020-11-14 02:50] VITALS: BP 156/76
--- NOTE | 2020-11-14 02:50 | NUR ---
PT ARRIVED TO MED SURG UNIT VIA STRETCHER ACCOMPANIED BY SENIOR HEALTH EDUCATOR SNOW CRISTINA. PT APPEARS TO BE IN STABLE CONDITION. PT REPORTS THAT SHE CANNOT WALK DUE TO A "BAD BONE ON BONE LEFT HIP" WE TRANSFERRED HER TO THE BED FROM THE STRETCHER AND V/S ASSESSED AT THIS TIME. PT ORIENTED TO CALL SYSTEM, LIGHTS, BED, AND TV.
--- NOTE | 2020-11-14 03:00 | NUR ---
ASSESSMENT AND ADMISSION COMPLETED AT THIS TIME. PUREWICK IS IN PLACE FOR INCONTINENT URINE.
[2020-11-14 04:27] VITALS: BP 150/78
--- NOTE | 2020-11-14 05:24 | NUR ---
RESP IN WITH PT AT THIS TIME ADMINISTERING SCHEDULED DUONEB TREATMENT. URINE SAMPLE COLLECTED FROM [facility] AND SENT TO LAB. PT WAS SLEEPING, AWOKE TO OUR ENTERING THE ROOM AND VOICES. DENIES ANY DISTRESSES AT THIS TIME.
[2020-11-14 06:05] LABS: URINE BILIRUBIN - DIPSTICK NEGATIVE (NEGATIVE); URINE BLOOD DIPSTICK NEGATIVE (NEGATIVE); URINE COLOR YELLOW; URINE GLUCOSE - DIPSTICK NEGATIVE (NEGATIVE); URINE KETONE NEGATIVE (NEGATIVE); URINE LEUK ESTERASE NEGATIVE (NEGATIVE); URINE PH 7.5 (4.5-8.0); URINE PROTEIN - DIPSTICK NEGATIVE (NEG-TRACE); URINE UROBILINOGEN - DIPSTICK 0.2 E.U./dL (0.2)
[2020-11-14 06:25] LABS: URINE NITRITE - DIPSTICK NEGATIVE (Negative)
--- NOTE | 2020-11-14 07:00 | NUR ---
PT REPORT RECEIVED FROM NIGHT NURSEKHAI.
[2020-11-14] MEDS ORDERED: IPRATROPIU0.5 MG/3 M NEB (07:35)
[2020-11-14] MEDS ORDERED: LEVOTHYROXIN25 MC1 PO (07:36)
[2020-11-14] MEDS ORDERED: TRAMADOL HCL50 MG PO (07:36)
[2020-11-14 08:00] VITALS: BP 152/72
--- NOTE | 2020-11-14 08:00 | NUR ---
PT WAS FOUND RESTING IN BED IN SEMI-FOWLERS POSITION;PT IS A&OX3;VS AND ASSESSMENT WERE COMPLETED;PT HAS NO REPORTS OF PAIN AT THIS TIME;HEART SOUNDS ARE REGULAR IN RATE AND RHYTHM;TELE IS IN PLACE;LUNG SOUNDS ARE CLEAR AND DIMINISHED IN THE LOWER LOBES;RESPIRATIONS ARE EVEN AND UNLABORED ON O2@2L VIA NC;PURE WICK IS IN PLACE DRAINING CLEAR YELLOW URINE;#20G IV IN RH IS SL, PATENT AND FREE OF COMPLICATIONS AT THIS TIME;PT HAS 1+ NON-PITTING EDEMA PRESENT IN THE LOWER EXTREMETIES BILATERALLY;SAFETY PRECAUTIONS IN PLACE;CALL LIGHT WITHIN REACH;BED IN LOWEST POSITION;WILL CONTINUE TO MONITOR.
--- NOTE | 2020-11-14 11:05 | NUR ---
AND CORI MCLEOD AT BEDSIDE DISCUSSING POC WITH PT.
--- NOTE | 2020-11-14 12:00 | NUR ---
PT WAS FOUND RESTING IN BED EATING LUNCH;PT IS REPORTING NO NEEDS OR CONCERNS AT THIS TIME;TELE IS IN PLACE;O2@2L VIA NC IS IN PLACE;SAFETY PRECAUTIONS IN PLACE;CALL LIGHT WITHIN REACH;BED IN LOWEST POSITION;PT ASKED TO CALL IF NEEDING ANYTHING;WILL CONTINUE TO MONIOR.
[2020-11-14 15:26] VITALS: BP 142/69
--- NOTE | 2020-11-14 16:00 | NUR ---
PT WAS FOUND NAPPING IN BED;PT AROUSED TO VERBAL STIMULI;PT HAS NO REPORTS OF PAIN AT THIS TIME;TELE IS IN PLACE;O2@2L VIA NC IS IN PLACE;#20G IV IN IS RUNNING NS@10 ML/HR AT THIS TIME;IV SITE APPEARS FREE OF COMPLICATIONS AT THIS TIME;PUREWICK IN PLACE DRAINING CLEAR YELLOW URINE;SAFETY PRECAUTIONS IN PLACE;CALL LIGHT WITHIN REACH;BED IN LOWEST POSITION;WILL CONTINUE TO MONITOR.
[2020-11-14 19:00] VITALS: BP 140/77
--- NOTE | 2020-11-14 20:30 | NUR ---
PT RESTING QUIETLY AT THIS TIME. NO COMPLAINTS VOICED. ALL ASSESSMENTS COMPLETED, PLEASE REFER TO DOCUMENTATION. #20 REMAINS TO R HAND RUNNING NS@10ML/HR. PT COMPLAINED OF PAIN TO L HIP, MEDICATED WITH ULTRAM @ 1918. MEDICATION WAS EFFECTIVE FOR PAIN. SAFETY PRECAUTIONS IN PLACE, BED IN LOWEST POSITION, CALL LIGHT WITHIN REACH. WILL MONITOR
[2020-11-15] VITALS: BP 157/77
--- NOTE | 2020-11-15 00:33 | NUR ---
PT RESTING AT THIS TIME. PREVIOUS C/O PAIN TO LEFT HIP, REPORTS BONE ON BONE PAIN. PT HAS ALREADY HAD HER DOSE OF ULTRAM. WILL MONITOR PAIN LEVELS THROUGHOUT THE SHIFT. SAFETY PRECAUTIONS IN PLACE. WILL MONITOR
[2020-11-15 04:00] VITALS: BP 136/64
[2020-11-15 05:34] LABS: HEMATOCRIT 47.2 % (37.0-47.0); HEMOGLOBIN 14.4 g/dl (12.0-16.0); MEAN CELL VOLUME 89.9 fL CALC (80.0-100.0); MEAN CORPUSCULAR HGB 27.4 pG CALC (26.0-32.0); MEAN CORPUSCULAR HGB CONC 30.5 g/dL CAL (32.0-36.0); RED BLOOD COUNT 5.25 mill/uL (4.20-5.60); RED CELL DISTRI WIDTH 13.2 % (11.5-15.5)
[2020-11-15 05:54] LABS: ANION GAP 9 (6-22 (CALC)); BUN 19 mg/dL (8-23); BUN/CREATININE RATIO 24 (12-20 (CALC)); CARBON DIOXIDE 35 mmol/l (22-30); CHLORIDE 93 mmol/l (95-108); CREATININE 0.8 mg/dL (0.5-1.0); GFR > 60 ML/MIN (>=60 (CALC)); GFR FOR AFR.AMER. > 60 ML/MIN (>=60 (CALC)); MAGNESIUM 2.2 mg/dL (1.6-2.3); POTASSIUM 4.2 mmol/l (3.5-5.1); SODIUM 133 mmol/l (137-146)
--- NOTE | 2020-11-15 06:01 | NUR ---
PT RESTING QUIETLY AT THIS TIME. DENIES PAIN. NO COMPLAINTS VOICED. BREATHING EVEN AND UNLABORED. NO S/S OF DISTRESS NOTED. SAFETY PRECAUTIONS IN PLACE, WILL MONITOR
--- NOTE | 2020-11-15 06:31 | NUR ---
PT RESTING COMFORTABLY. NAD. VSSS. GRAPHIC PRE PRESS TRADES WORKER TO MONITOR.
--- NOTE | 2020-11-15 07:00 | NUR ---
PT REPORT RECEIVED FROM NIGHT NURSEPEYTON
[2020-11-15 07:22] VITALS: BP 139/73
--- NOTE | 2020-11-15 08:00 | NUR ---
PT WAS FOUND SLEEPING IN BED;PT AROUSED TO VERBAL STIMULI;PT IS A&OX3;VS AND ASSESSMENT WERE COMPLETED;PT IS REPORTING LEFT HIP PAIN OF 5/10;PT WAS MEDICATED WITH ULTRAM 50 MG PO;HEART SOUNDS ARE REGULAR IN RATE AND RHYTHM;TELE IS IN PLACE;LUNG SOUNDS ARE CLEAR AND DIMINISHED IN THE LOWER LOBES;RESPIRATIONS ARE EVEN AND UNLABORED ON O2@2L VIA NC;PT IS REPORTING EXERTIONAL SOB;PUREWICK IS IN PLACE DRAINING CLEAR YELLOW URINE;#20G IV IN IS RUNNING NS@10ML/HR;IV SITE APPEARS FREE OF COMPLICATIONS AT THIS TIME;SAFETY PRECAUTIONS IN PLACE;CALL LIGHT WITHIN REACH;BED IN LOWEST POSITION;WILL CONTINUE TO MONITOR.
--- NOTE | 2020-11-15 10:01 | NUR ---
AND CORI MCLEOD AT BEDSIDE DISCUSSING POC WITH PT
[2020-11-15] MEDS ORDERED: PREDNISONE10 MG PO (10:06)
--- NOTE | 2020-11-15 10:12 | NUR ---
PT TGOL ARROSOLIZED BRONCHODIOLATOR THERAPY WELL. NAD. VSS. D/C TO HOME TODAY PER .
[2020-11-15 11:18] VITALS: BP 139/75
--- NOTE | 2020-11-15 12:15 | NUR ---
Discharge instructions given. Patient verbalizes understanding of same. Discharged in stable condition via Wheelchair to Home with family. All belongings sent with pt. DISCHARGE PACKET WAS GIVEN TO PT;DC INSTRUCTIONS AND MEDICATIONS WERE EXPLAINED TO PT;PT EXPRESSED UNDERSTANDING AND HAD NO FURTHER QUESTIONS;SIGNATURE WAS OBTAINED;TELE WAS REMOVED;IV WAS REMOVED WITH NO COMPLICATIONS AND CATHETER INTACT;PT WILL BE DC HOME WITH [facility]. PT WAS TRANSPORTED TO [facility] IN STABLE CONDITION VIA ACCOMPANIED BY PRODUCT TRAINER;ALL PT BELONGINGS WERE SENT WITH PT;PT WILL BE TRANSPORTED HOME WITH FAMILY;PT WILL HAVE [facility] WELL.
== END 2020-11-15 12:15 ==
LOC: ED 22:57 → ED-I 23:55 → ED 11-14 01:43 → MS2 11-14 01:44
PROVIDERS: Emergency Medicine; Nurse Practitioner; ADMIT Internal Medicine; ATTEND Internal Medicine
DX: J43.9 Emphysema, unspecified (principal); J96.22 Acute and chronic respiratory failure with hypercapnia; J96.21 Acute and chronic respiratory failure with hypoxia; E87.1 Hypo-osmolality and hyponatremia; I11.0 Hypertensive heart disease with heart failure; I50.9 Heart failure, unspecified; G62.9 Polyneuropathy, unspecified; I25.10 Atherosclerotic heart disease of native coronary artery without angina pectoris; K21.9 Gastro-esophageal reflux disease without esophagitis; E03.9 Hypothyroidism, unspecified; R13.10 Dysphagia, unspecified; Z88.5 Allergy status to narcotic agent; Z87.891 Personal history of nicotine dependence; Z20.822 Contact with and (suspected) exposure to COVID-19
CPT/HCPCS: G0378; J1650

== ENCOUNTER 2020-11-30 12:12 | Emergency (ER) | payer MEDICARE, BC ==
[~2020-11-30] VITALS: Ht 167.6 cm; Wt 81.0 kg
[~2020-11-30 12:12] MED LIST changes: +IPRATROPIU0.5 MG/3 M NEB; +LEVOTHYROXIN25 MC1 PO
[2020-11-30 12:56] LABS: HEMATOCRIT 48.1 % (37.0-47.0); HEMOGLOBIN 14.7 g/dl (12.0-16.0); IMMATURE GRANULOCYTES 0.4 % (0.0-5.0); MEAN CELL VOLUME 90.1 fL CALC (80.0-100.0); MEAN CORPUSCULAR HGB 27.5 pG CALC (26.0-32.0); MEAN CORPUSCULAR HGB CONC 30.6 g/dL CAL (32.0-36.0); NEUT# 12.95 thou/uL (2.00-7.15); RED BLOOD COUNT 5.34 mill/uL (4.20-5.60); RED CELL DISTRI WIDTH 14.1 % (11.5-15.5)
[2020-11-30 14:11] LABS: ALBUMIN 3.3 g/dL (3.2-5.0); ALKALINE PHOSPHATASE 71 u/l (38-126); ANION GAP 7 (6-22 (CALC)); BILIRUBIN, TOTAL 0.6 mg/dL (0.0-1.4); BUN 18 mg/dL (8-23); BUN/CREATININE RATIO 18 (12-20 (CALC)); CARBON DIOXIDE 31 mmol/l (22-30); CHLORIDE 95 mmol/l (95-108); GFR 53 ML/MIN (>=60 (CALC)); GFR FOR AFR.AMER. > 60 ML/MIN (>=60 (CALC)); SGOT/AST 19 u/l (9-36); SODIUM 129 mmol/l (137-146); TOTAL PROTEIN 5.7 g/dL (6.3-8.2)
[2020-11-30 14:23] LABS: MYOGLOBIN 98 ng/mL (0 - 62)
[2020-11-30 14:42] LABS: URINE BILIRUBIN - DIPSTICK NEGATIVE (NEGATIVE); URINE BLOOD DIPSTICK NEGATIVE (NEGATIVE); URINE COLOR YELLOW; URINE GLUCOSE - DIPSTICK NEGATIVE (NEGATIVE); URINE KETONE NEGATIVE (NEGATIVE); URINE LEUK ESTERASE NEGATIVE (NEGATIVE); URINE NITRITE - DIPSTICK NEGATIVE (Negative); URINE PROTEIN - DIPSTICK NEGATIVE (NEG-TRACE); URINE UROBILINOGEN - DIPSTICK 0.2 E.U./dL (0.2)
--- NOTE | 2020-11-30 14:49 | NUR ---
PT C NAD. VSS. SPO2 ON RA= 95. SPEAKING IN FULL, CLEAR SENTENCES. DOG RAISER TO MONITOR. AWARE.
[2020-11-30 16:22] VITALS: BP 132/68
== END 2020-11-30 16:23 | disposition home or self-care (01) ==
LOC: ED 12:12
PROVIDERS: Emergency Medicine
DX: I49.3 Ventricular premature depolarization (principal); K21.9 Gastro-esophageal reflux disease without esophagitis; G62.9 Polyneuropathy, unspecified; I11.0 Hypertensive heart disease with heart failure; I50.9 Heart failure, unspecified; J44.9 Chronic obstructive pulmonary disease, unspecified

== ENCOUNTER 2021-10-16 07:59 | Day surgery (SDC) | payer MEDICARE, BC ==
[~2021-10-16] VITALS: Ht 167.6 cm; Wt 81.6 kg
[~2021-10-16 07:59] MED LIST changes: +MECLIZINE25 MG PO; +TRAMADOL HYDRO100 MG PO; +VALSARTAN160 MG
[2021-10-16 11:27] VITALS: BP 196/94
== END 2021-10-16 10:55 | disposition home or self-care (01) ==
LOC: ORM 07:59
PROVIDERS: ATTEND Physical Medicine & Rehabilitation
DX: M47.816 Spondylosis without myelopathy or radiculopathy, lumbar region (principal); G89.4 Chronic pain syndrome; M54.16 Radiculopathy, lumbar region; M62.838 Other muscle spasm; M53.3 Sacrococcygeal disorders, not elsewhere classified

== ENCOUNTER 2021-12-16 12:42 | Observation (INO) | payer MEDICARE, BC ==
[2021-12-16] VITALS (17 sets, daily range): BP systolic 130–190; BP diastolic 58–86
[~2021-12-16] VITALS: Ht 167.6 cm; Wt 74.0 kg
--- NOTE | 2021-12-16 12:44 | NUR ---
PT TO ROOM VIA WC
[2021-12-16] MEDS ORDERED: OMEPRAZOLE DR40 MG PO (12:54)
[2021-12-16] MEDS ORDERED: BETIMOL0.5 % OU (12:55)
[2021-12-16] MEDS ORDERED: XALATAN0.005 % OU (12:56)
[2021-12-16] MEDS ORDERED: BRIMONIDINE0.2 % OU (12:56)
[2021-12-16 13:11] LABS: IMMATURE GRANULOCYTES 0.2 % (0.0-5.0); MEAN CELL VOLUME 94.2 fL CALC (80.0-100.0); MEAN CORPUSCULAR HGB 28.8 pG CALC (26.0-32.0); MEAN CORPUSCULAR HGB CONC 30.6 g/dL CAL (32.0-36.0); NEUT# 7.38 thou/uL (2.00-7.15); RED BLOOD COUNT 5.2 mill/uL (4.20-5.60); RED CELL DISTRI WIDTH 12.8 % (11.5-15.5)
[2021-12-16 13:28] LABS: PROTHROMBIN TIME 10.3 SECONDS (9.0-12.5)
[2021-12-16 13:29] LABS: BUN 15 mg/dL (8-23); BUN/CREATININE RATIO 16 (12-20 (CALC)); CREATININE 0.9 mg/dL (0.5-1.0); GFR FOR AFR.AMER. > 60 ML/MIN (>=60 (CALC)); GFR OTHER RACES 60 ML/MIN (>=60 (CALC)); POTASSIUM 4.9 mmol/l (3.5-5.1)
[2021-12-16 13:30] LABS: ALKALINE PHOSPHATASE 79 u/l (38-126); ANION GAP 9 (6-22 (CALC)); CARBON DIOXIDE 37 mmol/l (22-30); CHLORIDE 89 mmol/l (95-108); SGOT/AST 37 u/l (9-36); SODIUM 130 mmol/l (137-146); TOTAL PROTEIN 6.9 g/dL (6.3-8.2)
[2021-12-16 13:31] LABS: BILIRUBIN, TOTAL 0.9 mg/dL (0.0-1.4)
[2021-12-16 13:41] LABS: MYOGLOBIN 55 ng/mL (0 - 62)
--- NOTE | 2021-12-16 15:01 | NUR ---
PT PLACED ON PUREWICK; FAMILY AT BEDSIDE; TRAY ORDERED; CALL LIGHT WITHIN REACH
[2021-12-16 15:30] LABS: URINE BILIRUBIN - DIPSTICK NEGATIVE (NEGATIVE); URINE BLOOD DIPSTICK NEGATIVE (NEGATIVE); URINE COLOR YELLOW; URINE GLUCOSE - DIPSTICK NEGATIVE (NEGATIVE); URINE KETONE NEGATIVE (NEGATIVE); URINE LEUK ESTERASE NEGATIVE (NEGATIVE); URINE PROTEIN - DIPSTICK NEGATIVE (NEG-TRACE); URINE UROBILINOGEN - DIPSTICK 0.2 E.U./dL (0.2)
[2021-12-16 15:33] LABS: URINE NITRITE - DIPSTICK NEGATIVE (Negative)
--- NOTE | 2021-12-16 15:46 | NUR ---
PATIENT IS EATING CARDIAC DIET TRAY THAT WAS DELIVERED.
--- NOTE | 2021-12-16 16:44 | NUR ---
PATIENT IS RESTING IN ROOM AWAITING ADMISSION.
--- NOTE | 2021-12-16 19:00 | NUR ---
ASSUMED CARE OF PT. PT RESTING IN ROOM.
--- NOTE | 2021-12-16 19:25 | NUR ---
REPORT RECEIVED FROM Yolanda MCKINNEY RN
--- NOTE | 2021-12-16 19:45 | NUR ---
PT TRANSFERRED TO [id number].
--- NOTE | 2021-12-16 19:49 | NUR ---
PATIENT ARRIVED ON FLOOR VIA STRETCHER ACCOMPANIED BY Yolanda FISHER RN. PATIENT ASSEMENT COMPELTED A THIS TIME. DAUGHTER AND GRANDAUGHTER AT BEDSIDE. PATIENT ALERT AND ORIENTED X3. NORMLA HEART SOUNDS, EKG OBTAINED AT THIS TIME, ABNORMAL READING ON TELE. A FIB, PER ED MORNITOR TECH THIS IS A MISREAD OF THE SYSTEM. CALL LIGHT PLACED WITHIN REACH. PLAN OF CARE REVIEWED WITH PATIENT AND FAMILY MEMBERS.
--- NOTE | 2021-12-17 02:30 | NUR ---
PATIENT COMPLAINING OF ON GOING HIP PAIN REGARDLESS OF MEDCIATIONS GIVEN, PATIENT STATES SHE WILL TRY TO SIT ON THE EDGE OF THE BED, SHE STATES SHE DOES THIS AT HOME AN DIT HELPS.
--- NOTE | 2021-12-17 02:45 | NUR ---
WARM BLANKETS PROVIDED FOR COMFORT
--- NOTE | 2021-12-17 02:59 | NUR ---
PATIENT ASSITED BACK TO BED X2, REPOSITIONED IN BED TO COMOFORT. PATIENT DENIES ANY CURRENT PAIN, CALL LIGHT AND BEDSIDE TABLE WTIHIN REACH.
[2021-12-17 04:32] VITALS: BP 173/78
--- NOTE | 2021-12-17 06:01 | NUR ---
PATIENT RESTING CALMLY, DENIES NAY CURRENT PAIN AND NO FURTHER NEEDS AT THIS TIME. CALL LIGHT AND BEDSIDE TABLE WITHIN REACH.
[2021-12-17 06:43] VITALS: BP 136/68
--- NOTE | 2021-12-17 08:00 | NUR ---
GOT REPORT FROM SHED HAND NURSE. PATIENT ASSESSED, AOX3, PATIENT JUST FINISHED WORKING WITH PT. PATIENT IS WHEELCHAIR BOUND. HAD A PUREWICK ON BUT WAS REMOVED WHEN WORKING WITH PT. PLACED A NEW PUREWICK ON. CALL LIGHT AND BEDSIDE TABLE WITH IN REACH. ADVISED TO CALL IF SHE NEEDS ANYTHING. PATIENT VERBALIZEDUNDERSTANDING.
[2021-12-17 10:28] VITALS: BP 134/60
[2021-12-17 10:35] LABS: ANION GAP 10 (6-22 (CALC)); BUN 14 mg/dL (8-23); BUN/CREATININE RATIO 17 (12-20 (CALC)); CARBON DIOXIDE 34 mmol/l (22-30); CHLORIDE 91 mmol/l (95-108); CREATININE 0.8 mg/dL (0.5-1.0); GFR FOR AFR.AMER. > 60 ML/MIN (>=60 (CALC)); GFR OTHER RACES > 60 ML/MIN (>=60 (CALC)); SODIUM 131 mmol/l (137-146)
[2021-12-17 10:44] LABS: POTASSIUM 3.5 mmol/l (3.5-5.1)
--- NOTE | 2021-12-17 12:00 | NUR ---
PATIENT IS SLEEPING, FAMILY AT BEDSIDE. NO SXS OF DISTRESS.
--- NOTE | 2021-12-17 12:00 | NUR ---
PATIENT IS WATCHING TV. NO SXS OF DISTRESS. ADVISED TO CALL IF NEEDING ANYTHING
[2021-12-17 14:22] VITALS: BP 123/59
--- NOTE | 2021-12-17 16:00 | NUR ---
PATIENT SLEEPING, NO SXS OF DISTRESS. CALL LIGHT AND BEDSIDE TABLE WITHIN REACH. ADVISED TO CALL IF NEEDING ANYTHING.
--- NOTE | 2021-12-17 19:10 | NUR ---
REPORT RECEIVED FROM Padmini DELUCA RN
[2021-12-17 19:39] VITALS: BP 157/66
[2021-12-18 00:31] VITALS: BP 158/73
--- NOTE | 2021-12-18 01:00 | NUR ---
PATIENT RESTING QUIETLY, CREAM RUBBED IN BILATERAL KNEES FOR COMOFRT. CALL LIGHT AND BEDSIDE TABLE WITHN REACH.
--- NOTE | 2021-12-18 04:15 | NUR ---
PATIENT RESTING QUIETLY. WEIGHED A THIS TIME. CALL LIGHT AND BEDSIDE TABLE WIHITHN REACH.
[2021-12-18 04:41] VITALS: BP 134/87
[2021-12-18 06:05] LABS: HEMATOCRIT 51.7 % (37.0-47.0); HEMOGLOBIN 16.3 g/dl (12.0-16.0); MEAN CELL VOLUME 91.7 fL CALC (80.0-100.0); MEAN CORPUSCULAR HGB 28.9 pG CALC (26.0-32.0); MEAN CORPUSCULAR HGB CONC 31.5 g/dL CAL (32.0-36.0); RED BLOOD COUNT 5.64 mill/uL (4.20-5.60); RED CELL DISTRI WIDTH 12.7 % (11.5-15.5)
[2021-12-18 06:24] LABS: ANION GAP 10 (6-22 (CALC)); BUN 18 mg/dL (8-23); BUN/CREATININE RATIO 21 (12-20 (CALC)); CARBON DIOXIDE 35 mmol/l (22-30); CHLORIDE 90 mmol/l (95-108); CREATININE 0.9 mg/dL (0.5-1.0); GFR FOR AFR.AMER. > 60 ML/MIN (>=60 (CALC)); GFR OTHER RACES 60 ML/MIN (>=60 (CALC)); MAGNESIUM 2.4 mg/dL (1.6-2.3); POTASSIUM 3.9 mmol/l (3.5-5.1); SODIUM 130 mmol/l (137-146)
[2021-12-18 06:27] VITALS: BP 136/74
--- NOTE | 2021-12-18 08:00 | NUR ---
GOT REPORT FROM SODA DRY HOUSE OPERATOR NURSE. PATIENT ASSESSED, AOX3. PATIENT HAS NO COMPLAINTS AT THIS TIME, PATIENT FINISHED FOOD. PATIENT'S GRANDDAUGHTER IS AT BEDSIDE. CALL LIGHT AND BEDSIDE TABLE WITH IN REACH. ADVISED TO CALL IF SHE NEEDED ANYTHING.
--- NOTE | 2021-12-18 12:00 | NUR ---
PATIENT RESTING IN BED. PATIENT STATES THAT SHE SHOULD BE GOING HOME TODAY.ADVISED HER THAT I WILL FOLLOW UP WITH MD AND LET HER KNOW. PATIENT VERBALIZED UNDERSTANDING. CALL LIGHT AND BEDSIDE TABLE WITH IN REACH OF PATIENT ADVISED TO CALL IF SHE NEEDS ANYTHING.
[2021-12-18] MEDS ORDERED: ZITHROMAX250 MG PO (13:00)
[2021-12-18] MEDS ORDERED: MEDDOSEPAK PO (13:01)
[2021-12-18] MEDS ORDERED: ALBUTEROL1 IN (13:34)
[2021-12-18] MEDS ORDERED: PREDNISONE10 MG PO (13:34)
[2021-12-18] MEDS ORDERED: BREO ELLIPTA 101 INH IN (13:37)
--- NOTE | 2021-12-18 14:24 | NUR ---
Pt resting in bed, awaiting ride home, she refued PT at this time
[2021-12-18 15:45] VITALS: BP 162/65
--- NOTE | 2021-12-18 16:25 | NUR ---
Discharge instructions given. Patient verbalizes understanding of same. Discharged in stable condition via Wheelchair to Home with family. All belongings sent with pt.
== END 2021-12-18 16:25 | disposition home health service (06) ==
LOC: ED 12:42 → ED-I 13:30 → ED 13:30 → ED-I 14:25 → ED 14:36 → MS2 14:37
PROVIDERS: Nurse Practitioner; ADMIT Internal Medicine; ATTEND Internal Medicine
DX: J43.9 Emphysema, unspecified (principal); J96.21 Acute and chronic respiratory failure with hypoxia; J96.22 Acute and chronic respiratory failure with hypercapnia; I11.0 Hypertensive heart disease with heart failure; I50.33 Acute on chronic diastolic (congestive) heart failure; E03.9 Hypothyroidism, unspecified; K21.9 Gastro-esophageal reflux disease without esophagitis; G62.9 Polyneuropathy, unspecified; R10.2 Pelvic and perineal pain; M25.559 Pain in unspecified hip; G89.29 Other chronic pain; H26.9 Unspecified cataract; H40.9 Unspecified glaucoma; Z99.81 Dependence on supplemental oxygen; Z99.3 Dependence on wheelchair; Z20.822 Contact with and (suspected) exposure to COVID-19
CPT/HCPCS: J1650

== ENCOUNTER 2022-04-21 12:32 | Observation (INO) | payer MEDICARE, BC ==
[~2022-04-21] VITALS: Ht 167.6 cm; Wt 79.8 kg
[2022-04-21] VITALS (10 sets, daily range): BP systolic 135–200; BP diastolic 58–85
[~2022-04-21 12:32] MED LIST changes: +ALBUTEROL1 IN; +BETIMOL0.5 % OU; +BREO ELLIPTA 101 INH IN; +BRIMONIDINE0.2 % OU; +OMEPRAZOLE DR40 MG PO; +XALATAN0.005 % OU
[2022-04-21 13:44] LABS: HEMATOCRIT 47.1 % (37.0-47.0); HEMOGLOBIN 14.6 g/dl (12.0-16.0); IMMATURE GRANULOCYTES 0.2 % (0.0-5.0); MEAN CELL VOLUME 94.2 fL CALC (80.0-100.0); MEAN CORPUSCULAR HGB 29.2 pG CALC (26.0-32.0); NEUT# 7.45 thou/uL (2.00-7.15); RED CELL DISTRI WIDTH 12.1 % (11.5-15.5)
[2022-04-21 14:03] LABS: ALBUMIN 3.9 g/dL (3.2-5.0); ALKALINE PHOSPHATASE 83 u/l (38-126); ANION GAP 9 (6-22 (CALC)); BUN 14 mg/dL (8-23); BUN/CREATININE RATIO 17 (12-20 (CALC)); CARBON DIOXIDE 37 mmol/l (22-30); CHLORIDE 92 mmol/l (95-108); CREATININE 0.8 mg/dL (0.5-1.0); GFR FOR AFR.AMER. > 60 ML/MIN (>=60 (CALC)); GFR OTHER RACES > 60 ML/MIN (>=60 (CALC)); POTASSIUM 4.3 mmol/l (3.5-5.1); SGOT/AST 25 u/l (9-36); SODIUM 134 mmol/l (137-146); TOTAL PROTEIN 6.2 g/dL (6.3-8.2)
[2022-04-21 14:04] LABS: BILIRUBIN, TOTAL 0.5 mg/dL (0.0-1.4)
[2022-04-22 04:23] VITALS: BP 143/60
[2022-04-22 06:55] VITALS: BP 176/76
[2022-04-22 10:28] VITALS: BP 136/63
[2022-04-22 15:35] VITALS: BP 117/50
[2022-04-22 19:06] VITALS: BP 152/66
[2022-04-22 20:00] VITALS: BP 162/76; BP 162/78
[2022-04-23 00:08] VITALS: BP 153/78
[2022-04-23 04:18] VITALS: BP 162/76
[2022-04-23 06:03] LABS: BUN 18 mg/dL (8-23); BUN/CREATININE RATIO 22 (12-20 (CALC)); CARBON DIOXIDE 39 mmol/l (22-30); CHLORIDE 91 mmol/l (95-108); CREATININE 0.8 mg/dL (0.5-1.0); GFR FOR AFR.AMER. > 60 ML/MIN (>=60 (CALC)); GFR OTHER RACES > 60 ML/MIN (>=60 (CALC)); MAGNESIUM 2.2 mg/dL (1.6-2.3); SODIUM 136 mmol/l (137-146)
[2022-04-23 06:04] LABS: ANION GAP 9 (6-22 (CALC)); POTASSIUM 3.4 mmol/l (3.5-5.1)
[2022-04-23 06:20] VITALS: BP 120/67
[2022-04-23 08:20] VITALS: BP 176/80
[2022-04-23 19:25] VITALS: BP 165/71
[2022-04-24 00:20] VITALS: BP 162/71
[2022-04-24 04:30] VITALS: BP 161/65
[2022-04-24 05:49] LABS: BUN 23 mg/dL (8-23); BUN/CREATININE RATIO 27 (12-20 (CALC)); CHLORIDE 93 mmol/l (95-108); CREATININE 0.8 mg/dL (0.5-1.0); GFR FOR AFR.AMER. > 60 ML/MIN (>=60 (CALC)); GFR OTHER RACES > 60 ML/MIN (>=60 (CALC)); POTASSIUM 3.3 mmol/l (3.5-5.1); SODIUM 136 mmol/l (137-146)
[2022-04-24 05:55] LABS: ANION GAP 5 (6-22 (CALC))
[2022-04-24 05:57] LABS: CARBON DIOXIDE 41 mmol/l (22-30)
[2022-04-24 06:54] VITALS: BP 158/69
[2022-04-24] MEDS ORDERED: PREDNISONE10 MG PO (10:00)
[2022-04-24] MEDS ORDERED: ZITHROMAX250 MG PO (10:01)
[2022-04-24 10:39] VITALS: BP 155/59
== END 2022-04-24 13:00 | disposition home health service (06) ==
LOC: ED 12:32 → ED-I 14:30 → ED 14:55 → MS2 15:07
PROVIDERS: Family Medicine; ADMIT Internal Medicine; ATTEND Internal Medicine
DX: J43.9 Emphysema, unspecified (principal); J96.21 Acute and chronic respiratory failure with hypoxia; I11.0 Hypertensive heart disease with heart failure; I50.9 Heart failure, unspecified; E03.9 Hypothyroidism, unspecified; G62.9 Polyneuropathy, unspecified; M19.90 Unspecified osteoarthritis, unspecified site; K21.9 Gastro-esophageal reflux disease without esophagitis; Z20.822 Contact with and (suspected) exposure to COVID-19
CPT/HCPCS: J1650

== ENCOUNTER 2022-06-30 11:51 | Emergency (ER) | payer MEDICARE, BC ==
[~2022-06-30] VITALS: Ht 167.6 cm; Wt 74.0 kg
[2022-06-30 13:36] LABS: BASO% 0.9 % (0-3); EOS% 2.7 % (0-8); HEMATOCRIT 44.6 % (37.0-47.0); HEMOGLOBIN 14.1 g/dl (12.0-16.0); IMMATURE GRANULOCYTES 0.1 % (0.0-5.0); LYMPH% 17.1 % (15-41); MEAN CELL VOLUME 95.1 fL CALC (80.0-100.0); MEAN CORPUSCULAR HGB 30.1 pG CALC (26.0-32.0); MEAN CORPUSCULAR HGB CONC 31.6 g/dL CAL (32.0-36.0); MONO% 5.7 % (2-13); NEUT# 5.75 thou/uL (2.00-7.15); NEUT% 73.5 % (42-76); RED BLOOD COUNT 4.69 mill/uL (4.20-5.60); RED CELL DISTRI WIDTH 12.6 % (11.5-15.5)
[2022-06-30 13:52] LABS: ALBUMIN 3.9 g/dL (3.2-5.0); ALKALINE PHOSPHATASE 84 u/l (38-126); BILIRUBIN, TOTAL 0.4 mg/dL (0.0-1.4); BUN 16 mg/dL (8-23); BUN/CREATININE RATIO 17 (12-20 (CALC)); CHLORIDE 90 mmol/l (95-108); CREATININE 0.9 mg/dL (0.5-1.0); GFR FOR AFR.AMER. > 60 ML/MIN (>=60 (CALC)); GFR OTHER RACES 60 ML/MIN (>=60 (CALC)); SGOT/AST 23 u/l (9-36); SODIUM 136 mmol/l (137-146); TOTAL PROTEIN 6.5 g/dL (6.3-8.2)
[2022-06-30 14:03] LABS: ANION GAP 11 (6-22 (CALC))
[2022-06-30 14:04] LABS: CARBON DIOXIDE > 40 mmol/l (22-30)
[2022-06-30] MEDS ORDERED: ZITHROMAX Z-PA250 MG PO (14:32)
[2022-06-30] MEDS ORDERED: MEDDOSEPAK PO (14:32)
[2022-06-30 15:34] VITALS: BP 160/83
== END 2022-06-30 16:00 | disposition home or self-care (01) ==
LOC: ED 11:51
PROVIDERS: Emergency Medicine
DX: J44.1 Chronic obstructive pulmonary disease with (acute) exacerbation (principal); I11.0 Hypertensive heart disease with heart failure; I50.9 Heart failure, unspecified; K21.9 Gastro-esophageal reflux disease without esophagitis; G62.9 Polyneuropathy, unspecified; Z20.822 Contact with and (suspected) exposure to COVID-19

== ENCOUNTER 2022-07-26 10:27 | Emergency (ER) | payer MEDICARE, BC ==
[~2022-07-26] VITALS: Ht 167.6 cm; Wt 81.6 kg
[2022-07-26] VITALS (25 sets, daily range): BP systolic 140–190; BP diastolic 71–136
[~2022-07-26 10:27] MED LIST changes: +ZITHROMAX Z-PA250 MG PO
[2022-07-26 11:57] LABS: BASO% 0.5 % (0-3); HEMATOCRIT 43.7 % (37.0-47.0); HEMOGLOBIN 13.6 g/dl (12.0-16.0); IMMATURE GRANULOCYTES 0.1 % (0.0-5.0); MEAN CELL VOLUME 95.6 fL CALC (80.0-100.0); MEAN CORPUSCULAR HGB 29.8 pG CALC (26.0-32.0); MEAN CORPUSCULAR HGB CONC 31.1 g/dL CAL (32.0-36.0); MONO% 5.4 % (2-13); NEUT# 6.42 thou/uL (2.00-7.15); RED BLOOD COUNT 4.57 mill/uL (4.20-5.60); RED CELL DISTRI WIDTH 12.6 % (11.5-15.5)
[2022-07-26 12:07] LABS: ALBUMIN 3.8 g/dL (3.2-5.0); ALKALINE PHOSPHATASE 76 u/l (38-126); BILIRUBIN, TOTAL 0.3 mg/dL (0.02-1.3); BUN 17 mg/dL (8-23); BUN/CREATININE RATIO 20 (12-20 (CALC)); CHLORIDE 90 mmol/l (95-108); CREATININE 0.9 mg/dL (0.5-1.0); GFR FOR AFR.AMER. > 60 ML/MIN (>=60 (CALC)); GFR OTHER RACES 60 ML/MIN (>=60 (CALC)); LIPASE 133 u/l (23-300); SGOT/AST 27 u/l (9-36); SODIUM 134 mmol/l (137-146); TOTAL PROTEIN 6.2 g/dL (6.3-8.2)
[2022-07-26 12:16] LABS: ANION GAP 5 (6-22 (CALC)); POTASSIUM 3.6 mmol/l (3.5-5.1)
[2022-07-26 12:17] LABS: CARBON DIOXIDE 43 mmol/l (22-30)
[2022-07-26 13:07] LABS: URINE BILIRUBIN - DIPSTICK NEGATIVE (NEGATIVE); URINE BLOOD DIPSTICK NEGATIVE (NEGATIVE); URINE COLOR YELLOW; URINE GLUCOSE - DIPSTICK NEGATIVE (NEGATIVE); URINE KETONE NEGATIVE (NEGATIVE); URINE LEUK ESTERASE MODERATE (Negative); URINE NITRITE - DIPSTICK NEGATIVE (Negative); URINE PROTEIN - DIPSTICK NEGATIVE (NEG-TRACE); URINE UROBILINOGEN - DIPSTICK 0.2 E.U./dL (0.2)
[2022-07-26 13:08] LABS: URINE CLARITY SL CLOUDY
[2022-07-26 13:09] LABS: URINE BACTERIA FEW hpf; URINE EPITHELIAL CELLS FEW EPI/hpf (0-FEW)
== END 2022-07-26 17:45 | disposition home or self-care (01) ==
LOC: ED 10:27
PROVIDERS: Emergency Medicine
DX: R07.89 Other chest pain (principal); I11.0 Hypertensive heart disease with heart failure; I50.33 Acute on chronic diastolic (congestive) heart failure; J44.1 Chronic obstructive pulmonary disease with (acute) exacerbation; K21.9 Gastro-esophageal reflux disease without esophagitis; G62.9 Polyneuropathy, unspecified

== ENCOUNTER 2022-09-23 12:12 | Emergency (ER) | payer MEDICARE, BC ==
[~2022-09-23] VITALS: Ht 167.6 cm; Wt 75.7 kg
[2022-09-23 13:11] LABS: BASO% 0.4 % (0-3); EOS% 2.1 % (0-8); HEMATOCRIT 45.5 % (37.0-47.0); HEMOGLOBIN 13.4 g/dl (12.0-16.0); IMMATURE GRANULOCYTES 0.1 % (0.0-5.0); LYMPH% 15.7 % (15-41); MEAN CELL VOLUME 96.8 fL CALC (80.0-100.0); MEAN CORPUSCULAR HGB 28.5 pG CALC (26.0-32.0); MEAN CORPUSCULAR HGB CONC 29.5 g/dL CAL (32.0-36.0); MONO% 6.6 % (2-13); NEUT# 7.37 thou/uL (2.00-7.15); NEUT% 75.1 % (42-76); RED BLOOD COUNT 4.7 mill/uL (4.20-5.60); RED CELL DISTRI WIDTH 12.3 % (11.5-15.5)
[2022-09-23 13:54] LABS: ALBUMIN 3.7 g/dL (3.2-5.0); ALKALINE PHOSPHATASE 77 u/l (38-126); BILIRUBIN, TOTAL 0.3 mg/dL (0.02-1.3); BUN 23 mg/dL (8-23); BUN/CREATININE RATIO 25 (12-20 (CALC)); CHLORIDE 86 mmol/l (95-108); CREATININE 0.9 mg/dL (0.5-1.0); GFR FOR AFR.AMER. > 60 ML/MIN (>=60 (CALC)); GFR OTHER RACES 60 ML/MIN (>=60 (CALC)); POTASSIUM 4.3 mmol/l (3.5-5.1); SGOT/AST 26 u/l (9-36); SODIUM 134 mmol/l (137-146); TOTAL PROTEIN 5.9 g/dL (6.3-8.2)
[2022-09-23 14:01] LABS: ANION GAP 10 (6-22 (CALC))
[2022-09-23 14:16] LABS: CARBON DIOXIDE 42 mmol/l (22-30)
[2022-09-23 16:18] VITALS: BP 160/73
== END 2022-09-23 16:51 | disposition home or self-care (01) ==
LOC: ED 12:12
PROVIDERS: Family Medicine
DX: R60.0 Localized edema (principal); R06.02 Shortness of breath; I11.0 Hypertensive heart disease with heart failure; I50.9 Heart failure, unspecified; J44.9 Chronic obstructive pulmonary disease, unspecified; K21.9 Gastro-esophageal reflux disease without esophagitis; G62.9 Polyneuropathy, unspecified; Z20.822 Contact with and (suspected) exposure to COVID-19
CPT/HCPCS: Q9967

== ENCOUNTER 2022-12-02 12:03 | Inpatient (IN) | payer MEDICARE, BC ==
[~2022-12-02] VITALS: Ht 167.6 cm; Wt 80.9 kg
[~2022-12-02 12:03] MED LIST changes: +ABILIFY10 MG PO; +ALBUTEROL108 MCG/AC IN; +ASPIRINCHW 81MG PO; +BUMETANIDE1 MG PO; +FLEXERIL5 M1 PO; +VALSARTAN160 MG PO
[2022-12-02 12:25] VITALS: BP 172/86
--- NOTE | 2022-12-02 12:52 | NUR ---
PT WAS DIRECT ADMIT, BROUGHT UP IN WHEELCHAIR WITH PORTABLE OXYGEN AND NASAL CANNULA IN PLACE. PT IS UNABLEW TO AMBULATE BUT CAN STAND AND PIVOT WITH ASSIST. PT WAS SOILED, WASHED AND CLEANED PT SAMUEL AREA. NO WOUNDS OR REDNESS PRESENT, SKIN INTACT. PT PLACED ON PUREWICK WITH BREIF. PT ON 2L O2 NASAL CANNULA. PT DOES SHOW SIGNS OF EXACERBATIONAL SOB. LUNG SOUNDS HAVE CRACKLES PRESENT BILATERALLY IN LOWER AND MID LOBES. PT DOES HAVE +2 PITTING EDEMA BILATERALLY LOWER EXTREMETIES. PEDAL PULES WEAK BUT CAPILLARY REFILL WNL. PT DOES HAVE SOME AGING SPOTS AND OLD BRUISING ON SKIN BUT OTHERWISE SKIN IS INTACT. PT ISD A/OX3. MOOD IS PLESEANT. EDUCATED ON PLAN OF CARE, DAILY WEIGHT, I&OS, AND SAFETY PRECAUTIONS. DAUGHTER WAS IN ROOM WITH PT. CALL LIGHT WITHIN [facility] AND SAFETY PRECAUTIONS IN PLACE.
[2022-12-02 12:58] LABS: HEMATOCRIT 41.1 % (37.0-47.0); HEMOGLOBIN 12.3 g/dl (12.0-16.0); MEAN CELL VOLUME 96.3 fL CALC (80.0-100.0); MEAN CORPUSCULAR HGB 28.8 pG CALC (26.0-32.0); MEAN CORPUSCULAR HGB CONC 29.9 g/dL CAL (32.0-36.0); RED BLOOD COUNT 4.27 mill/uL (4.20-5.60); RED CELL DISTRI WIDTH 12.3 % (11.5-15.5)
[2022-12-02 13:30] LABS: BUN 16 mg/dL (8-23); BUN/CREATININE RATIO 24 (12-20 (CALC)); CHLORIDE 87 mmol/l (95-108); CREATININE 0.7 mg/dL (0.5-1.0); GFR FOR AFR.AMER. > 60 ML/MIN (>=60 (CALC)); GFR OTHER RACES > 60 ML/MIN (>=60 (CALC)); SODIUM 130 mmol/l (137-146)
[2022-12-02 13:37] LABS: ANION GAP 9 (6-22 (CALC)); CARBON DIOXIDE 39 mmol/l (22-30); POTASSIUM 4.6 mmol/l (3.5-5.1)
[2022-12-02 15:12] VITALS: BP 141/55
--- NOTE | 2022-12-02 16:49 | NUR ---
PT RECEIVED BREATHING TREATMENT. PT NOW SITTING UP FOWLERS IN BED. DENIES ANY PAIN AT THIS TIME. NASAL CANNULA IN PLACE. CALL LIGHT WITHIN REACH AND SAFETY PRECAUTIONS IN PLACE.
[2022-12-02 19:16] VITALS: BP 139/66
--- NOTE | 2022-12-02 19:19 | NUR ---
BEDSIDE REPORT RECEIVED FORM OFF GOING NURSE. PATIENT AWAKE AND ALERT IN BED. RESPIRATIONS EVEN AND UNLABORED ON OXYGEN AT 2 LPM VIA NASAL CANNULA. DENIES PAIN OR DISCOMFORT AT THIS TIME. HEAD TO TOE ASSESSMENT COMPLETED. VITAL SIGNS BEING TAKEN AT THIS TIME. CALL LIGHT WITHIN REACH.
--- NOTE | 2022-12-02 22:53 | NUR ---
PATIENT IN BED ASLEEP AT THIS TIME. RESPIRATIONS EVEN AND UNLABORED ON OXYGEN AT 2 LPM VIA NASAL CANNULA AND FOLLOWING NEB TREATMENT. CALL LIGHT WITHIN REACH.
[2022-12-03] VITALS (8 sets, daily range): BP systolic 141–169; BP diastolic 56–72
--- NOTE | 2022-12-03 03:27 | NUR ---
PATIENT ASLEEP IN BED. RESPIRATIONS EVEN AMD UNLABOREDON OXYGEN AT 2 LPM VIA NASAL CANNULA. SAFETY MEASURES IN PLACE. CALL LIGHT WITHIN REACH.
[2022-12-03 06:24] LABS: ALBUMIN 3.4 g/dL (3.2-5.0); ALKALINE PHOSPHATASE 75 u/l (38-126); ANION GAP 8 (6-22 (CALC)); BILIRUBIN, TOTAL 0.3 mg/dL (0.02-1.3); BUN 12 mg/dL (8-23); BUN/CREATININE RATIO 15 (12-20 (CALC)); CHLORIDE 88 mmol/l (95-108); CREATININE 0.8 mg/dL (0.5-1.0); GFR FOR AFR.AMER. > 60 ML/MIN (>=60 (CALC)); GFR OTHER RACES > 60 ML/MIN (>=60 (CALC)); SGOT/AST 21 u/l (9-36); SODIUM 132 mmol/l (137-146); TOTAL PROTEIN 5.8 g/dL (6.3-8.2)
[2022-12-03 06:32] LABS: CARBON DIOXIDE 40 mmol/l (22-30)
--- NOTE | 2022-12-03 08:00 | NUR ---
PT ASLEEP ON BED. VSS. ALL SAFETY MEASURES IN PLACE.
[2022-12-03 09:19] LABS: URINE BILIRUBIN - DIPSTICK NEGATIVE (NEGATIVE); URINE BLOOD DIPSTICK NEGATIVE (NEGATIVE); URINE COLOR YELLOW; URINE GLUCOSE - DIPSTICK NEGATIVE (NEGATIVE); URINE KETONE NEGATIVE (NEGATIVE); URINE PROTEIN - DIPSTICK NEGATIVE (NEG-TRACE); URINE UROBILINOGEN - DIPSTICK 0.2 E.U./dL (0.2)
[2022-12-03 09:20] LABS: URINE LEUK ESTERASE SMALL (NEGATIVE); URINE NITRITE - DIPSTICK NEGATIVE (Negative)
[2022-12-03 09:27] LABS: URINE BACTERIA MANY hpf; URINE SQUAMOUS EPITHELIAL CELL RARE EPI/hpf (0-FEW); URINE WBC 0-2 WBC/hpf (0-5)
--- NOTE | 2022-12-03 09:46 | NUR ---
bond writer informed of pt needing a urine. bond writer obtained urine and took down to lab.
--- NOTE | 2022-12-03 12:00 | NUR ---
PT RESTING IN BED WATCHING TELEVISION. VSS. ALL SAFETY MEASURES IN PLACE.
--- NOTE | 2022-12-03 20:00 | NUR ---
RECEIVED REPORT FROM NURSE PATRICIA, PATIENT ALERT ORIENTED X 4 ABLE TO MAKE NEEDS KNONW, SALINE LOCK NOTED ON RT HAND PATENT FLUSHES WELL, HOOKED ON TELEMETRY, ACTIVE BOWEL SOUNDS NLBM 6/7, O2 @ 2LPM VIA NC, COUGHING NOTED NON PRODUCTIVE, DIMINISHED LUNG SOUNDS, +1 EDEMA ON LEFT ANKLE AND TRACE RT ANKLE, PATINET ON PUREWICK DRAINING YELLOW COLORED URINE, CALL LIGHT IN REACH.
[2022-12-04] VITALS (9 sets, daily range): BP systolic 113–156; BP diastolic 52–67
--- NOTE | 2022-12-04 | NUR ---
PATIENT RESTING WITH EYES CLOSED, REMAINS ON O2 @ 2LPM VIA NC, BREATHING EVEN UNLABORED, NOT IN DISTRESS, CALL LIGHT IN REACH.
--- NOTE | 2022-12-04 | NUR ---
PATIENT RESTING IN BED, EYES CLOSED, DUE ZOSYN GIVEN, REMAINS ON O2 @ 2LPM VIA NC, BREATHING UNLABORED CALL LIGHT IN REACH.
--- NOTE | 2022-12-04 04:13 | NUR ---
PATIENT RESTING WITH EYES CLOSED, REMAINS ON O2 AT 2LPM VIA NC BREATHING UNLABORED CALL LIGHT IN REACH.
[2022-12-04 05:16] LABS: HEMATOCRIT 41.2 % (37.0-47.0); HEMOGLOBIN 12.7 g/dl (12.0-16.0); MEAN CELL VOLUME 94.3 fL CALC (80.0-100.0); MEAN CORPUSCULAR HGB 29.1 pG CALC (26.0-32.0); MEAN CORPUSCULAR HGB CONC 30.8 g/dL CAL (32.0-36.0); RED BLOOD COUNT 4.37 mill/uL (4.20-5.60); RED CELL DISTRI WIDTH 12.2 % (11.5-15.5)
[2022-12-04 05:43] LABS: ALBUMIN 3.3 g/dL (3.2-5.0); ALKALINE PHOSPHATASE 76 u/l (38-126); BUN 10 mg/dL (8-23); BUN/CREATININE RATIO 14 (12-20 (CALC)); CHLORIDE 85 mmol/l (95-108); CREATININE 0.7 mg/dL (0.5-1.0); GFR FOR AFR.AMER. > 60 ML/MIN (>=60 (CALC)); GFR OTHER RACES > 60 ML/MIN (>=60 (CALC)); POTASSIUM 3.7 mmol/l (3.5-5.1); SGOT/AST 19 u/l (9-36); SODIUM 129 mmol/l (137-146); TOTAL PROTEIN 5.7 g/dL (6.3-8.2)
[2022-12-04 05:53] LABS: ANION GAP 5 (6-22 (CALC)); BILIRUBIN, TOTAL 0.5 mg/dL (0.02-1.3); CARBON DIOXIDE 43 mmol/l (22-30)
--- NOTE | 2022-12-04 06:19 | NUR ---
RECEIVED CRITRICAL CO2 FROM LAB NOTIFIED DR. MOYA NO NEW ORDERS MADE AT THIS TIME.
--- NOTE | 2022-12-04 07:39 | NUR ---
PT RESTING IN LOW FOWLERS POSITION.A/OX3 PT X2 ASSIST. PT HEART RHYTHM ON TELE. RESPIATIONS ON 2L NC PRN. IV SITE NOTED TO RH S.L. PT DENIES ADDITIONAL NEEDS AT THE TIME WITH SAFETY PRECAUTIONS IN PLACE .
--- NOTE | 2022-12-04 12:06 | NUR ---
PT DENIES ADDITIONAL NEEDS AT THE TIME. UA NEED OF COLLECTION. PT STATED WILL NOTIFY STAFF WHEN READY TO URINATE.
[2022-12-04 16:08] LABS: URINE BILIRUBIN - DIPSTICK NEGATIVE (NEGATIVE); URINE BLOOD DIPSTICK NEGATIVE (NEGATIVE); URINE CLARITY CLEAR; URINE COLOR YELLOW; URINE GLUCOSE - DIPSTICK NEGATIVE (NEGATIVE); URINE KETONE NEGATIVE (NEGATIVE); URINE LEUK ESTERASE TRACE (Negative); URINE NITRITE - DIPSTICK NEGATIVE (Negative); URINE PROTEIN - DIPSTICK NEGATIVE (NEG-TRACE); URINE SPECIFIC GRAVITY 1.015; URINE UROBILINOGEN - DIPSTICK 0.2 E.U./dL (0.2)
--- NOTE | 2022-12-04 16:55 | NUR ---
PT RECIEVED BREATHING TREATMENT. PT UA COLLECTED DURING THE DAY.
--- NOTE | 2022-12-04 19:57 | NUR ---
BEDSIDE REPORT RECEIVED FROM OFF GOING NURSE. PATIENT AWAKE IN BED STATING THAT "MY BOTTOM HURTS" PATIENT ASSESSED BY THIS BLENDER CONVEYOR OPERATOR AND SECOND NURSE. NO SKIN BREAK DOWN NOTED. PATIENT REPOSITIONED FOR COMFORT. RESPIRATIONS EVEN AND UNLABORED ON OXYGEN AT2 LPM VIA NASAL CANNULA. CALL LIGHT WITHIN REACH.
--- NOTE | 2022-12-04 23:15 | NUR ---
PATIENT REPOSITIONED IN BED. CONTINUES ON OXYGEN AT 2 LPM VIA NASAL CANNULA. SHALLOW BREATHING NOTED. EDUCATION PROVIDED ON BREATHING EXERCISES. PATIENT VERBALIZES UNDERSTANDING. DENIES PAIN OR DOSCOMFORT AT THIS TIME. CALL LIGHT WITHIN REACH.
[2022-12-05 00:35] VITALS: BP 147/63
--- NOTE | 2022-12-05 02:37 | NUR ---
PATIENT ASLEEP IN BED. RESPIRATIONS EVEN AND UNLABORED ON OXYGEN AT 2 LPM VIA NASAL CANNULA. CALL LIGHT WITHIN REACH. CALL LIGHT WITHIN REACH.
--- NOTE | 2022-12-05 04:40 | NUR ---
PATIENT ASLEEP IN BED. PATIENT CONTINUES ON OXYGEN AT 2 LPM VIA NASAL CANNULA. IN NO APPARENT DISTRESS. CALL LIGHT WITHIN REACH.
[2022-12-05 06:42] VITALS: BP 129/52
[2022-12-05 06:47] LABS: BASO% 0.5 % (0-3); EOS% 2.3 % (0-8); HEMATOCRIT 40.8 % (37.0-47.0); HEMOGLOBIN 12.8 g/dl (12.0-16.0); IMMATURE GRANULOCYTES 0.2 % (0.0-5.0); LYMPH% 15.5 % (15-41); MEAN CELL VOLUME 93.8 fL CALC (80.0-100.0); MEAN CORPUSCULAR HGB 29.4 pG CALC (26.0-32.0); MEAN CORPUSCULAR HGB CONC 31.4 g/dL CAL (32.0-36.0); MONO% 7.3 % (2-13); NEUT# 6.22 thou/uL (2.00-7.15); NEUT% 74.2 % (42-76); RED BLOOD COUNT 4.35 mill/uL (4.20-5.60); RED CELL DISTRI WIDTH 12.2 % (11.5-15.5)
[2022-12-05 07:06] LABS: ALBUMIN 3.2 g/dL (3.2-5.0); ALKALINE PHOSPHATASE 71 u/l (38-126); BILIRUBIN, TOTAL 0.4 mg/dL (0.02-1.3); BUN 13 mg/dL (8-23); BUN/CREATININE RATIO 19 (12-20 (CALC)); CHLORIDE 85 mmol/l (95-108); CREATININE 0.7 mg/dL (0.5-1.0); GFR FOR AFR.AMER. > 60 ML/MIN (>=60 (CALC)); GFR OTHER RACES > 60 ML/MIN (>=60 (CALC)); MAGNESIUM 2.1 mg/dL (1.6-2.3); POTASSIUM 3.6 mmol/l (3.5-5.1); SGOT/AST 24 u/l (9-36); SODIUM 131 mmol/l (137-146); TOTAL PROTEIN 5.6 g/dL (6.3-8.2)
[2022-12-05 07:13] LABS: ANION GAP 7 (6-22 (CALC))
[2022-12-05 07:18] LABS: CARBON DIOXIDE 43 mmol/l (22-30)
--- NOTE | 2022-12-05 08:00 | NUR ---
PT SITTING UP IN CHAIR EATING BREAKFAST ALERT AND OREINTED X3. PT HAS C/O BACK PAIN AT THIS TIME, WILL MEDICATE WITH PRN MEDICATION ORDERED. TELE ON WITH ALL LEADS ATTACHED. IV SITE TO RIGHT HAND CLEAN AND INTACT. PT HAS BEDSIDE COMMODE IN AND CAN TRANSER WITH ASSISTANCE FOR TOILETING NEEDS. PT HAS O2 @ 2 LITERS ON VIA NC. PT HAS CALL LIGHT WITHIN REACH AND ALL SAFETY MEASURES IN PLACE AT THIS TIME.
[2022-12-05 08:12] VITALS: BP 116/58
[2022-12-05 10:39] VITALS: BP 115/57
--- NOTE | 2022-12-05 12:00 | NUR ---
PT IN BED RESTING WITH HOB. ALERT AND OREINTEDX 3 WITH FAMILY AT BEDSIDE. CASE MANAGEMENT IN ROOM TO DISCUSS PLACEMENT WITH PT AND FAMILY. PT HAS NO C/O PAIN AT THIS TIME. CALL LIGHT WITHIN REACH AND SAFETY MEASURES IN PLACE AT THIS TIME.
[2022-12-05] MEDS ORDERED: TRAMADOL HCL50 MG PO (14:04)
--- NOTE | 2022-12-05 16:11 | NUR ---
Discharge instructions given. Patient verbalizes understanding of same. Discharged in stable condition via Wheelchair to [facility] with *Other. All belongings sent with pt.
== END 2022-12-05 16:09 | DRG 291 ==
LOC: MS2 12:03
PROVIDERS: Nurse Practitioner Family; ADMIT Internal Medicine; ATTEND Internal Medicine
DX: I13.0 Hypertensive heart and chronic kidney disease with heart failure and stage 1 through stage 4 chronic kidney disease, or unspecified chronic kidney disease (principal); I50.33 Acute on chronic diastolic (congestive) heart failure; J96.21 Acute and chronic respiratory failure with hypoxia; J43.9 Emphysema, unspecified; N18.30 Chronic kidney disease, stage 3 unspecified; M15.9 Polyosteoarthritis, unspecified; G62.9 Polyneuropathy, unspecified; E03.9 Hypothyroidism, unspecified; K21.9 Gastro-esophageal reflux disease without esophagitis; Z87.891 Personal history of nicotine dependence; Z99.81 Dependence on supplemental oxygen

== ENCOUNTER 2022-12-17 05:50 | Emergency (ER) | payer MEDICARE, BC ==
[~2022-12-17] VITALS: Ht 167.6 cm; Wt 81.0 kg
[2022-12-17] VITALS (20 sets, daily range): BP systolic 115–173; BP diastolic 59–126
[2022-12-17 06:47] LABS: BASO% 0.4 % (0-3); HEMATOCRIT 41.9 % (37.0-47.0); HEMOGLOBIN 12.3 g/dl (12.0-16.0); IMMATURE GRANULOCYTES 0.2 % (0.0-5.0); MEAN CELL VOLUME 97.2 fL CALC (80.0-100.0); MEAN CORPUSCULAR HGB 28.5 pG CALC (26.0-32.0); MEAN CORPUSCULAR HGB CONC 29.4 g/dL CAL (32.0-36.0); MONO% 6.6 % (2-13); NEUT# 6.98 thou/uL (2.00-7.15); NEUT% 77.8 % (42-76); RED BLOOD COUNT 4.31 mill/uL (4.20-5.60); RED CELL DISTRI WIDTH 12.5 % (11.5-15.5)
[2022-12-17 06:59] LABS: ALBUMIN 3.5 g/dL (3.2-5.0); ALKALINE PHOSPHATASE 82 u/l (38-126); BILIRUBIN, TOTAL 0.3 mg/dL (0.02-1.3); BUN 10 mg/dL (8-23); BUN/CREATININE RATIO 14 (12-20 (CALC)); CHLORIDE 85 mmol/l (95-108); CREATININE 0.8 mg/dL (0.5-1.0); GFR FOR AFR.AMER. > 60 ML/MIN (>=60 (CALC)); GFR OTHER RACES > 60 ML/MIN (>=60 (CALC)); SGOT/AST 24 u/l (9-36); SODIUM 130 mmol/l (137-146); TOTAL PROTEIN 5.9 g/dL (6.3-8.2)
[2022-12-17 07:08] LABS: ANION GAP 8 (6-22 (CALC)); POTASSIUM 4.5 mmol/l (3.5-5.1)
[2022-12-17 07:10] LABS: CARBON DIOXIDE 42 mmol/l (22-30)
[2022-12-17 09:27] LABS: URINE BILIRUBIN - DIPSTICK NEGATIVE (NEGATIVE); URINE BLOOD DIPSTICK NEGATIVE (NEGATIVE); URINE COLOR YELLOW; URINE GLUCOSE - DIPSTICK NEGATIVE (NEGATIVE); URINE KETONE NEGATIVE (NEGATIVE); URINE PH 7.5 (4.5-8.0); URINE PROTEIN - DIPSTICK TRACE mg/dL (NEG-TRACE)
[2022-12-17 09:28] LABS: URINE LEUK ESTERASE SMALL (NEGATIVE); URINE NITRITE - DIPSTICK NEGATIVE (Negative)
[2022-12-17 09:33] LABS: URINE BACTERIA MANY hpf; URINE SQUAMOUS EPITHELIAL CELL FEW EPI/hpf (0-FEW)
== END 2022-12-17 11:55 | disposition home or self-care (01) ==
LOC: ED 05:50
PROVIDERS: Emergency Medicine
DX: J44.1 Chronic obstructive pulmonary disease with (acute) exacerbation (principal); I11.0 Hypertensive heart disease with heart failure; I50.9 Heart failure, unspecified; Z99.81 Dependence on supplemental oxygen; Z20.822 Contact with and (suspected) exposure to COVID-19

== ENCOUNTER 2022-12-22 14:22 | Observation (INO) | payer MEDICARE, BC ==
[~2022-12-22] VITALS: Ht 167.6 cm; Wt 78.1 kg
[2022-12-22 14:59] VITALS: BP 183/74
[2022-12-22 15:27] LABS: BASO% 0.6 % (0-3); EOS% 1.3 % (0-8); HEMATOCRIT 42.4 % (37.0-47.0); IMMATURE GRANULOCYTES 0.2 % (0.0-5.0); LYMPH% 14.9 % (15-41); MEAN CORPUSCULAR HGB 28.8 pG CALC (26.0-32.0); MEAN CORPUSCULAR HGB CONC 30.7 g/dL CAL (32.0-36.0); MONO% 5.6 % (2-13); NEUT# 7.69 thou/uL (2.00-7.15); NEUT% 77.4 % (42-76); RED BLOOD COUNT 4.51 mill/uL (4.20-5.60); RED CELL DISTRI WIDTH 12.4 % (11.5-15.5)
[2022-12-22 15:40] LABS: ANION GAP 11 (6-22 (CALC)); BUN 14 mg/dL (8-23); BUN/CREATININE RATIO 17 (12-20 (CALC)); CHLORIDE 84 mmol/l (95-108); CREATININE 0.8 mg/dL (0.5-1.0); GFR FOR AFR.AMER. > 60 ML/MIN (>=60 (CALC)); GFR OTHER RACES > 60 ML/MIN (>=60 (CALC)); POTASSIUM 4.5 mmol/l (3.5-5.1); SODIUM 131 mmol/l (137-146)
[2022-12-22 16:06] LABS: CARBON DIOXIDE 41 mmol/l (22-30)
[2022-12-22 16:08] VITALS: BP 183/74
[2022-12-22 18:06] VITALS: BP 156/64
[2022-12-22 20:18] VITALS: BP 180/77
[2022-12-22 20:52] LABS: URINE BILIRUBIN - DIPSTICK NEGATIVE (NEGATIVE); URINE BLOOD DIPSTICK NEGATIVE (NEGATIVE); URINE CLARITY CLEAR; URINE COLOR YELLOW; URINE GLUCOSE - DIPSTICK NEGATIVE (NEGATIVE); URINE KETONE NEGATIVE (NEGATIVE); URINE LEUK ESTERASE NEGATIVE (Negative); URINE NITRITE - DIPSTICK NEGATIVE (Negative); URINE PROTEIN - DIPSTICK NEGATIVE (NEG-TRACE); URINE UROBILINOGEN - DIPSTICK 0.2 E.U./dL (0.2)
[2022-12-22 23:45] VITALS: BP 167/67
[2022-12-23 04:14] VITALS: BP 145/65
[2022-12-23 07:17] VITALS: BP 175/70
[2022-12-23 07:36] LABS: ALBUMIN 3.3 g/dL (3.2-5.0); ALKALINE PHOSPHATASE 93 u/l (38-126); BILIRUBIN, TOTAL 0.4 mg/dL (0.02-1.3); BUN 11 mg/dL (8-23); BUN/CREATININE RATIO 14 (12-20 (CALC)); CHLORIDE 83 mmol/l (95-108); CREATININE 0.8 mg/dL (0.5-1.0); GFR FOR AFR.AMER. > 60 ML/MIN (>=60 (CALC)); GFR OTHER RACES > 60 ML/MIN (>=60 (CALC)); SGOT/AST 21 u/l (9-36); SODIUM 130 mmol/l (137-146); TOTAL PROTEIN 5.5 g/dL (6.3-8.2)
[2022-12-23 07:47] LABS: ANION GAP 4 (6-22 (CALC)); CARBON DIOXIDE 46 mmol/l (22-30); POTASSIUM 3.4 mmol/l (3.5-5.1)
[2022-12-23 10:55] VITALS: BP 117/60
[2022-12-23 14:29] VITALS: BP 117/60
[2022-12-23 19:06] VITALS: BP 154/68
[2022-12-24 00:15] VITALS: BP 166/66
[2022-12-24 04:44] VITALS: BP 157/70
[2022-12-24 05:50] LABS: BASO% 0.5 % (0-3); EOS% 1.4 % (0-8); HEMATOCRIT 41.8 % (37.0-47.0); HEMOGLOBIN 12.9 g/dl (12.0-16.0); IMMATURE GRANULOCYTES 0.3 % (0.0-5.0); LYMPH% 12.7 % (15-41); MEAN CELL VOLUME 93.7 fL CALC (80.0-100.0); MEAN CORPUSCULAR HGB 28.9 pG CALC (26.0-32.0); MEAN CORPUSCULAR HGB CONC 30.9 g/dL CAL (32.0-36.0); MONO% 6.2 % (2-13); NEUT# 8.18 thou/uL (2.00-7.15); NEUT% 78.9 % (42-76); RED BLOOD COUNT 4.46 mill/uL (4.20-5.60); RED CELL DISTRI WIDTH 12.3 % (11.5-15.5)
[2022-12-24 06:15] LABS: ALBUMIN 3.5 g/dL (3.2-5.0); BILIRUBIN, TOTAL 0.4 mg/dL (0.02-1.3); CREATININE 1.1 mg/dL (0.5-1.0); MAGNESIUM 2.1 mg/dL (1.6-2.3); TOTAL PROTEIN 6.2 g/dL (6.3-8.2)
[2022-12-24 06:59] VITALS: BP 141/60
[2022-12-24 10:57] VITALS: BP 139/62
[2022-12-24 15:12] VITALS: BP 162/71
[2022-12-24 19:00] VITALS: BP 148/60
[2022-12-25 00:10] VITALS: BP 156/66
[2022-12-25 05:07] VITALS: BP 165/77
[2022-12-25 05:31] LABS: BASO% 0.6 % (0-3); EOS% 1.5 % (0-8); HEMATOCRIT 40.3 % (37.0-47.0); HEMOGLOBIN 12.6 g/dl (12.0-16.0); IMMATURE GRANULOCYTES 0.2 % (0.0-5.0); LYMPH% 15.9 % (15-41); MEAN CELL VOLUME 91.8 fL CALC (80.0-100.0); MEAN CORPUSCULAR HGB 28.7 pG CALC (26.0-32.0); MEAN CORPUSCULAR HGB CONC 31.3 g/dL CAL (32.0-36.0); MONO% 6.8 % (2-13); NEUT# 7.19 thou/uL (2.00-7.15); RED BLOOD COUNT 4.39 mill/uL (4.20-5.60); RED CELL DISTRI WIDTH 12.2 % (11.5-15.5)
[2022-12-25 06:00] LABS: ALBUMIN 3.4 g/dL (3.2-5.0); ALKALINE PHOSPHATASE 72 u/l (38-126); ANION GAP 9 (6-22 (CALC)); BUN 13 mg/dL (8-23); BUN/CREATININE RATIO 15 (12-20 (CALC)); CARBON DIOXIDE 32 mmol/l (22-30); CHLORIDE 90 mmol/l (95-108); CREATININE 0.8 mg/dL (0.5-1.0); GFR FOR AFR.AMER. > 60 ML/MIN (>=60 (CALC)); GFR OTHER RACES > 60 ML/MIN (>=60 (CALC)); POTASSIUM 3.6 mmol/l (3.5-5.1); SGOT/AST 27 u/l (9-36); SODIUM 126 mmol/l (137-146); TOTAL PROTEIN 5.7 g/dL (6.3-8.2)
[2022-12-25 06:04] LABS: BILIRUBIN, TOTAL 0.6 mg/dL (0.02-1.3)
[2022-12-25 06:32] VITALS: BP 149/72
[2022-12-25 08:39] VITALS: BP 114/54
[2022-12-25 10:29] VITALS: BP 113/57
[2022-12-25] MEDS ORDERED: POTASSIUM CHLO20 MEQ PO (10:32)
== END 2022-12-25 12:07 ==
LOC: MS2 14:22
PROVIDERS: Nurse Practitioner Family; ADMIT Internal Medicine; ATTEND Internal Medicine
DX: I13.0 Hypertensive heart and chronic kidney disease with heart failure and stage 1 through stage 4 chronic kidney disease, or unspecified chronic kidney disease (principal); I50.33 Acute on chronic diastolic (congestive) heart failure; N18.30 Chronic kidney disease, stage 3 unspecified; N39.0 Urinary tract infection, site not specified; J44.9 Chronic obstructive pulmonary disease, unspecified; J96.12 Chronic respiratory failure with hypercapnia; J96.11 Chronic respiratory failure with hypoxia; E87.3 Alkalosis; E03.9 Hypothyroidism, unspecified; K21.9 Gastro-esophageal reflux disease without esophagitis; G62.9 Polyneuropathy, unspecified; T38.0X6A Underdosing of glucocorticoids and synthetic analogues, initial encounter; Z91.120 Patient's intentional underdosing of medication regimen due to financial hardship; Z87.891 Personal history of nicotine dependence; Z99.81 Dependence on supplemental oxygen; Z66 Do not resuscitate

== ENCOUNTER 2023-01-26 10:50 | Inpatient (IN) | payer MEDICARE, BC ==
[2023-01-26] VITALS (9 sets, daily range): BP systolic 139–183; BP diastolic 69–120
[~2023-01-26] VITALS: Ht 152.4 cm; Wt 76.8 kg
[~2023-01-26 10:50] MED LIST changes: +POTASSIUM CHLO20 MEQ PO
[2023-01-26 11:45] LABS: BASO% 0.6 % (0-3); EOS% 1.8 % (0-8); HEMOGLOBIN 13.8 g/dl (12.0-16.0); IMMATURE GRANULOCYTES 0.1 % (0.0-5.0); LYMPH% 17.3 % (15-41); MEAN CELL VOLUME 93.6 fL CALC (80.0-100.0); MEAN CORPUSCULAR HGB 28.7 pG CALC (26.0-32.0); MEAN CORPUSCULAR HGB CONC 30.7 g/dL CAL (32.0-36.0); MONO% 6.8 % (2-13); NEUT# 6.87 thou/uL (2.00-7.15); NEUT% 73.4 % (42-76); RED BLOOD COUNT 4.81 mill/uL (4.20-5.60); RED CELL DISTRI WIDTH 12.2 % (11.5-15.5)
[2023-01-26 12:00] LABS: ALKALINE PHOSPHATASE 95 u/l (38-126); BILIRUBIN, TOTAL 0.6 mg/dL (0.02-1.3); BUN 19 mg/dL (8-23); BUN/CREATININE RATIO 20 (12-20 (CALC)); CHLORIDE 84 mmol/l (95-108); GFR FOR AFR.AMER. > 60 ML/MIN (>=60 (CALC)); GFR OTHER RACES 53 ML/MIN (>=60 (CALC)); POTASSIUM 4.3 mmol/l (3.5-5.1); SGOT/AST 26 u/l (9-36)
[2023-01-26 12:03] LABS: URINE BILIRUBIN - DIPSTICK NEGATIVE (NEGATIVE); URINE COLOR YELLOW; URINE GLUCOSE - DIPSTICK NEGATIVE (NEGATIVE); URINE KETONE Negative (NEGATIVE); URINE PROTEIN - DIPSTICK NEGATIVE (NEG-TRACE); URINE SPECIFIC GRAVITY 1.015; URINE UROBILINOGEN - DIPSTICK 0.2 E.U./dL (0.2)
[2023-01-26 12:04] LABS: URINE BLOOD DIPSTICK NEGATIVE (NEGATIVE); URINE LEUK ESTERASE NEGATIVE (NEGATIVE); URINE NITRITE - DIPSTICK NEGATIVE (Negative)
[2023-01-26 12:22] LABS: SODIUM 133 mmol/l (137-146)
[2023-01-26 12:23] LABS: ALBUMIN 4.1 g/dL (3.2-5.0); ANION GAP 9 (6-22 (CALC)); TOTAL PROTEIN 7.1 g/dL (6.3-8.2)
[2023-01-26 12:24] LABS: CARBON DIOXIDE 44 mmol/l (22-30)
[2023-01-27] VITALS (8 sets, daily range): BP systolic 156–193; BP diastolic 70–96
[2023-01-27 05:09] LABS: BASO% 0.2 % (0-3); HEMATOCRIT 42.5 % (37.0-47.0); HEMOGLOBIN 13.7 g/dl (12.0-16.0); IMMATURE GRANULOCYTES 0.4 % (0.0-5.0); LYMPH% 7.6 % (15-41); MEAN CELL VOLUME 88.4 fL CALC (80.0-100.0); MEAN CORPUSCULAR HGB 28.5 pG CALC (26.0-32.0); MEAN CORPUSCULAR HGB CONC 32.2 g/dL CAL (32.0-36.0); MONO% 0.8 % (2-13); NEUT# 11.38 thou/uL (2.00-7.15); RED BLOOD COUNT 4.81 mill/uL (4.20-5.60); RED CELL DISTRI WIDTH 11.8 % (11.5-15.5)
[2023-01-27 05:28] LABS: ALBUMIN 3.9 g/dL (3.2-5.0); ALKALINE PHOSPHATASE 91 u/l (38-126); ANION GAP 10 (6-22 (CALC)); BILIRUBIN, TOTAL 0.4 mg/dL (0.02-1.3); BUN 18 mg/dL (8-23); BUN/CREATININE RATIO 24 (12-20 (CALC)); CARBON DIOXIDE 37 mmol/l (22-30); CHLORIDE 83 mmol/l (95-108); CREATININE 0.8 mg/dL (0.5-1.0); GFR FOR AFR.AMER. > 60 ML/MIN (>=60 (CALC)); GFR OTHER RACES > 60 ML/MIN (>=60 (CALC)); MAGNESIUM 2.1 mg/dL (1.6-2.3); POTASSIUM 3.6 mmol/l (3.5-5.1); SGOT/AST 28 u/l (9-36); SODIUM 127 mmol/l (137-146); TOTAL PROTEIN 6.7 g/dL (6.3-8.2)
[2023-01-28] VITALS (9 sets, daily range): BP systolic 150–188; BP diastolic 64–85
[2023-01-28 05:49] LABS: BASO% 0.2 % (0-3); HEMATOCRIT 42.3 % (37.0-47.0); HEMOGLOBIN 13.5 g/dl (12.0-16.0); IMMATURE GRANULOCYTES 0.4 % (0.0-5.0); LYMPH% 6.7 % (15-41); MEAN CELL VOLUME 89.1 fL CALC (80.0-100.0); MEAN CORPUSCULAR HGB 28.4 pG CALC (26.0-32.0); MEAN CORPUSCULAR HGB CONC 31.9 g/dL CAL (32.0-36.0); MONO% 4.8 % (2-13); NEUT# 14.17 thou/uL (2.00-7.15); NEUT% 87.9 % (42-76); RED BLOOD COUNT 4.75 mill/uL (4.20-5.60); RED CELL DISTRI WIDTH 12.2 % (11.5-15.5)
[2023-01-28 06:04] LABS: ALBUMIN 3.7 g/dL (3.2-5.0); ALKALINE PHOSPHATASE 81 u/l (38-126); ANION GAP 9 (6-22 (CALC)); BILIRUBIN, TOTAL 0.2 mg/dL (0.02-1.3); BUN 18 mg/dL (8-23); BUN/CREATININE RATIO 24 (12-20 (CALC)); CARBON DIOXIDE 39 mmol/l (22-30); CHLORIDE 86 mmol/l (95-108); CREATININE 0.8 mg/dL (0.5-1.0); GFR FOR AFR.AMER. > 60 ML/MIN (>=60 (CALC)); GFR OTHER RACES > 60 ML/MIN (>=60 (CALC)); MAGNESIUM 2.2 mg/dL (1.6-2.3); POTASSIUM 3.4 mmol/l (3.5-5.1); SGOT/AST 42 u/l (9-36); SODIUM 130 mmol/l (137-146); TOTAL PROTEIN 6.3 g/dL (6.3-8.2)
[2023-01-29] VITALS (7 sets, daily range): BP systolic 149–190; BP diastolic 59–91
[2023-01-29 05:54] LABS: BASO% 0.1 % (0-3); HEMATOCRIT 44.7 % (37.0-47.0); HEMOGLOBIN 14.1 g/dl (12.0-16.0); IMMATURE GRANULOCYTES 0.2 % (0.0-5.0); LYMPH% 11.5 % (15-41); MEAN CORPUSCULAR HGB 28.7 pG CALC (26.0-32.0); MEAN CORPUSCULAR HGB CONC 31.5 g/dL CAL (32.0-36.0); MONO% 5.7 % (2-13); NEUT# 10.81 thou/uL (2.00-7.15); NEUT% 82.5 % (42-76); RED BLOOD COUNT 4.91 mill/uL (4.20-5.60); RED CELL DISTRI WIDTH 12.3 % (11.5-15.5)
[2023-01-29 05:56] LABS: ALBUMIN 3.6 g/dL (3.2-5.0); ALKALINE PHOSPHATASE 76 u/l (38-126); BUN 19 mg/dL (8-23); BUN/CREATININE RATIO 23 (12-20 (CALC)); CHLORIDE 89 mmol/l (95-108); CREATININE 0.8 mg/dL (0.5-1.0); GFR FOR AFR.AMER. > 60 ML/MIN (>=60 (CALC)); GFR OTHER RACES > 60 ML/MIN (>=60 (CALC)); MAGNESIUM 2.2 mg/dL (1.6-2.3); POTASSIUM 3.8 mmol/l (3.5-5.1); SGOT/AST 33 u/l (9-36); SODIUM 131 mmol/l (137-146); TOTAL PROTEIN 5.8 g/dL (6.3-8.2)
[2023-01-29 06:01] LABS: ANION GAP 8 (6-22 (CALC)); CARBON DIOXIDE 38 mmol/l (22-30)
[2023-01-29 06:04] LABS: BILIRUBIN, TOTAL 0.3 mg/dL (0.02-1.3)
[2023-01-30 00:07] VITALS: BP 171/84
[2023-01-30 00:50] VITALS: BP 171/84
[2023-01-30 03:53] VITALS: BP 165/77
[2023-01-30 04:31] VITALS: BP 164/77
[2023-01-30 06:03] LABS: BASO% 0.2 % (0-3); HEMATOCRIT 40.7 % (37.0-47.0); HEMOGLOBIN 12.9 g/dl (12.0-16.0); IMMATURE GRANULOCYTES 0.4 % (0.0-5.0); LYMPH% 12.9 % (15-41); MEAN CELL VOLUME 91.5 fL CALC (80.0-100.0); MEAN CORPUSCULAR HGB CONC 31.7 g/dL CAL (32.0-36.0); MONO% 6.6 % (2-13); NEUT# 8.99 thou/uL (2.00-7.15); NEUT% 79.9 % (42-76); RED BLOOD COUNT 4.45 mill/uL (4.20-5.60); RED CELL DISTRI WIDTH 12.1 % (11.5-15.5)
[2023-01-30 06:31] LABS: ALBUMIN 3.3 g/dL (3.2-5.0); ALKALINE PHOSPHATASE 73 u/l (38-126); ANION GAP 7 (6-22 (CALC)); BILIRUBIN, TOTAL 0.3 mg/dL (0.02-1.3); BUN 24 mg/dL (8-23); BUN/CREATININE RATIO 28 (12-20 (CALC)); CARBON DIOXIDE 39 mmol/l (22-30); CHLORIDE 88 mmol/l (95-108); CREATININE 0.9 mg/dL (0.5-1.0); GFR FOR AFR.AMER. > 60 ML/MIN (>=60 (CALC)); GFR OTHER RACES 60 ML/MIN (>=60 (CALC)); MAGNESIUM 2.5 mg/dL (1.6-2.3); POTASSIUM 3.7 mmol/l (3.5-5.1); SGOT/AST 48 u/l (9-36); SODIUM 130 mmol/l (137-146); TOTAL PROTEIN 5.6 g/dL (6.3-8.2)
[2023-01-30 07:04] VITALS: BP 175/90
[2023-01-30] MEDS ORDERED: AMLODIPINE BESYL5 MG PO (08:28)
[2023-01-30 11:54] VITALS: BP 138/75
[2023-01-30] MEDS ORDERED: PREDNISONE10 MG PO (14:17)
== END 2023-01-30 15:34 | disposition home health service (06) | DRG 191 ==
LOC: ED 10:50 → ED-I 12:31 → ED 14:56 → MS2 14:57
PROVIDERS: Family Medicine; Nurse Practitioner Family; ADMIT Student in an Organized Health Care Education/Training Program; ATTEND Student in an Organized Health Care Education/Training Program
DX: J44.1 Chronic obstructive pulmonary disease with (acute) exacerbation (principal); I13.0 Hypertensive heart and chronic kidney disease with heart failure and stage 1 through stage 4 chronic kidney disease, or unspecified chronic kidney disease; J96.11 Chronic respiratory failure with hypoxia; J96.12 Chronic respiratory failure with hypercapnia; I50.9 Heart failure, unspecified; N18.30 Chronic kidney disease, stage 3 unspecified; G62.9 Polyneuropathy, unspecified; E03.9 Hypothyroidism, unspecified; K21.9 Gastro-esophageal reflux disease without esophagitis; T48.996A Underdosing of other agents primarily acting on the respiratory system, initial encounter; Z91.128 Patient's intentional underdosing of medication regimen for other reason; Z99.81 Dependence on supplemental oxygen; Z87.891 Personal history of nicotine dependence; Z20.822 Contact with and (suspected) exposure to COVID-19
CPT/HCPCS: J1650; Q9967

== ENCOUNTER 2023-03-06 10:55 | Inpatient (IN) | payer MEDICARE, BC ==
[~2023-03-06] VITALS: Ht 152.4 cm; Wt 79.6 kg
[2023-03-06] VITALS (23 sets, daily range): BP systolic 122–201; BP diastolic 65–132
--- NOTE | 2023-03-06 11:00 | NUR ---
PATIENT TO ROOM 12 VIA WHEELCHAIR WITH CLOVIS.
[2023-03-06 11:38] LABS: BASO% 0.5 % (0-3); EOS% 1.9 % (0-8); HEMOGLOBIN 13.4 g/dl (12.0-16.0); IMMATURE GRANULOCYTES 0.6 % (0.0-5.0); LYMPH% 12.5 % (15-41); MEAN CELL VOLUME 93.5 fL CALC (80.0-100.0); MEAN CORPUSCULAR HGB 29.1 pG CALC (26.0-32.0); MEAN CORPUSCULAR HGB CONC 31.2 g/dL CAL (32.0-36.0); NEUT# 7.47 thou/uL (2.00-7.15); NEUT% 77.5 % (42-76); RED BLOOD COUNT 4.6 mill/uL (4.20-5.60); RED CELL DISTRI WIDTH 12.3 % (11.5-15.5)
[2023-03-06 12:44] LABS: ALBUMIN 3.5 g/dL (3.2-5.0); ALKALINE PHOSPHATASE 81 u/l (38-126); ANION GAP 10 (6-22 (CALC)); BUN 19 mg/dL (8-23); BUN/CREATININE RATIO 21 (12-20 (CALC)); CARBON DIOXIDE 39 mmol/l (22-30); CHLORIDE 86 mmol/l (95-108); CREATININE 0.9 mg/dL (0.5-1.0); GFR FOR AFR.AMER. > 60 ML/MIN (>=60 (CALC)); GFR OTHER RACES 60 ML/MIN (>=60 (CALC)); POTASSIUM 4.1 mmol/l (3.5-5.1); SGOT/AST 26 u/l (9-36); SODIUM 131 mmol/l (137-146); TOTAL PROTEIN 6.3 g/dL (6.3-8.2)
[2023-03-06 12:53] LABS: BILIRUBIN, TOTAL 0.5 mg/dL (0.02-1.3)
--- NOTE | 2023-03-06 13:15 | NUR ---
Reassessment of patient completed. No distress noted.
--- NOTE | 2023-03-06 14:29 | NUR ---
ATTEMPT TO CALL REPORT, NURSE TO RETURN CALL
--- NOTE | 2023-03-06 15:23 | NUR ---
REPORT GIVEN TO PATRICIA ADAMSON
--- NOTE | 2023-03-06 19:30 | NUR ---
BEDSIDE REPORT RECEIVED FROM OFF GOING NURSE. PATIENT AWAKE AND RESTING IN BED. RESPIRATIONS SHALLOW ON O2 @ 2 LPM. PATIENT ASKED FOR PRN PAIN MED FOR HIP PAIN. PUREWICK IN PLACE. CALL LIGHT WITHIN REACH.
--- NOTE | 2023-03-06 22:44 | NUR ---
MD MADE AWARE THAT PATIENT IS REQUESTING HER HOME ANTI-HYPERTENSIVE MEDICATION. NEW ORDER RECEIVED AND ADMINISTERED. PATIENT MEDCATED AND REPOSITIONED R/T LEFT HIP PAIN. SAFETY MEASURES IN PLACE. CALL LIGHT WITHIN REACH.
[2023-03-07] VITALS (8 sets, daily range): BP systolic 131–179; BP diastolic 57–81
--- NOTE | 2023-03-07 01:32 | NUR ---
PATIENT ASLEP IN BED WITH WITH HOB ELEVATED. RESPIRATIONS EVEN AND UNLABORED ON O2 @ 2 LPM VIA NASAL CANNULA. SAFETY MEASURES IN PLACE. CALL LIGHT WITHIN REACH.
--- NOTE | 2023-03-07 03:31 | NUR ---
PATIENT ASLEEP IN BED. NO SIGNS OF DISTRESS NOTED. RESPIRATIONS EVEN AND UNLABORED ON O2@ 2 LPM VIA NASAL CANNULA. CALL LIGHT WITHIN REACH.
[2023-03-07 04:52] LABS: BASO% 0.2 % (0-3); EOS% 0.1 % (0-8); HEMATOCRIT 41.6 % (37.0-47.0); HEMOGLOBIN 13.2 g/dl (12.0-16.0); IMMATURE GRANULOCYTES 0.4 % (0.0-5.0); LYMPH% 5.3 % (15-41); MEAN CELL VOLUME 92.4 fL CALC (80.0-100.0); MEAN CORPUSCULAR HGB 29.3 pG CALC (26.0-32.0); MEAN CORPUSCULAR HGB CONC 31.7 g/dL CAL (32.0-36.0); MONO% 1.1 % (2-13); NEUT# 9.5 thou/uL (2.00-7.15); NEUT% 92.9 % (42-76); RED BLOOD COUNT 4.5 mill/uL (4.20-5.60); RED CELL DISTRI WIDTH 11.9 % (11.5-15.5)
[2023-03-07 05:09] LABS: ALBUMIN 3.5 g/dL (3.2-5.0); ALKALINE PHOSPHATASE 92 u/l (38-126); ANION GAP 8 (6-22 (CALC)); BILIRUBIN, TOTAL 0.4 mg/dL (0.02-1.3); BUN 14 mg/dL (8-23); BUN/CREATININE RATIO 16 (12-20 (CALC)); CARBON DIOXIDE 38 mmol/l (22-30); CHLORIDE 88 mmol/l (95-108); CREATININE 0.9 mg/dL (0.5-1.0); GFR FOR AFR.AMER. > 60 ML/MIN (>=60 (CALC)); GFR OTHER RACES 60 ML/MIN (>=60 (CALC)); MAGNESIUM 2.1 mg/dL (1.6-2.3); POTASSIUM 4.2 mmol/l (3.5-5.1); SGOT/AST 25 u/l (9-36); SODIUM 131 mmol/l (137-146); TOTAL PROTEIN 5.8 g/dL (6.3-8.2)
--- NOTE | 2023-03-07 06:11 | NUR ---
PATIENT AWAKE IN BED. DENIES PAIN OR DISCOMFORT AT THIS TIME. NO CONCERNS VOICED. RESPIRATIONS EVEN AND UNLABORED ON O2@ 2 LPM VIA NASAL CANNULA. CALL LIGHT WITHIN REACH.
[2023-03-07 06:19] LABS: URINE BILIRUBIN - DIPSTICK Negative (NEGATIVE); URINE BLOOD DIPSTICK Negative (NEGATIVE); URINE COLOR Yellow; URINE GLUCOSE - DIPSTICK Negative (NEGATIVE); URINE KETONE Negative (NEGATIVE); URINE LEUK ESTERASE Negative (NEGATIVE); URINE NITRITE - DIPSTICK Negative (Negative); URINE PROTEIN - DIPSTICK Negative (NEG-TRACE); URINE SPECIFIC GRAVITY 1.015
--- NOTE | 2023-03-07 07:20 | NUR ---
PERFROMED BEDSIDE REPORT WITH NIGHTSHIFT NURSE. PT IS CURRENTLY BEING CLEANED UP BY SIDE PANEL HANGER STAFF AT THIS TIME. PT HAS PUREWICK NOTED. A/OX3, NASAL CANNULA ON 2L O2, AND DENIES ANY PAIN AT THIS TIME. PT SKIN INTACT BUT REDNESS NOTED ON BOTTOM, NO OPEN AREAS. EDUCATED PT ON PLAN OF CARE TODAY AND MED SCHEDULE. CALL LIGHT WITHIN REACH AND SAFETY PRECAUTIONS IN PLACE.
--- NOTE | 2023-03-07 12:00 | NUR ---
PT IS SITTING UP IN CHAIR EATING LUNCH, PT HAS MULTIPLE VISITORS AT THIS TIME. LIDOCAIN PATCH WAS ADMINISTERED PER EMAR TO HELP WITH PT PAIN. NASAL CANNULA IN PLACE. MO S/S OF DISTRESS. VSS. CALL LIGHT WITHIN REACH AND SAFETY PRECAUTIONS IN PLACE.
--- NOTE | 2023-03-07 17:10 | NUR ---
PT IS LAYING SEMI FOWLERS IN BED AT THIS TIME. PUREWICK NOTED WITH OUTPUT. NASAL CANNULA IN PLACE. PT DENIES ANY PAIN. NO S/S OF DISTRESS. CALL LIGHT WITHIN REACH AND SAFETY PRECAUTIONS IN PLACE.
--- NOTE | 2023-03-07 19:27 | NUR ---
BEDSIDE REPORT RECEIVED FROM OFF GOING NURSE. PATIENT IS ALERT AND ORIENTED AND REQUESTING A NEDBULIZER TREATMENT. RT MADE AWARE AND IS CURRENTLY IN ROOM WITH PATIENT. SAFETY MEASURES IN PLACE. CALL LIGHT WITHIN REACH.
--- NOTE | 2023-03-07 23:55 | NUR ---
PATIENT AWAKE IN BED RECEIVING NEB TREATMENT. C/O PAIN TO LEFT SHOULDER. PATIENT WAS REPOSITIONED IN BED AND A HOT PACK WAS PROVIDED FOR COMFORT. CONTINUES ON OXYGEN VIA NASAL CANNULA. SAFETY MEASURES IN PLACE. CALL LIGHT WITHIN REACH.
--- NOTE | 2023-03-08 02:10 | NUR ---
PATIENT ASLEEP IN BED WITH HOB ELEVATED. CONTINUES ON OXYGEN AT 2 LPM VIA NASAL CANNULA. SAFETY MEASURES IN PLACE. CALL LIGHT WITHIN REACH.
[2023-03-08 03:06] VITALS: BP 157/72
[2023-03-08 05:32] LABS: BASO% 0.1 % (0-3); HEMATOCRIT 38.6 % (37.0-47.0); HEMOGLOBIN 12.3 g/dl (12.0-16.0); IMMATURE GRANULOCYTES 0.8 % (0.0-5.0); LYMPH% 5.3 % (15-41); MEAN CORPUSCULAR HGB CONC 31.9 g/dL CAL (32.0-36.0); NEUT# 15.91 thou/uL (2.00-7.15); NEUT% 91.8 % (42-76); RED BLOOD COUNT 4.24 mill/uL (4.20-5.60); RED CELL DISTRI WIDTH 12.2 % (11.5-15.5)
[2023-03-08 05:46] LABS: ALBUMIN 3.3 g/dL (3.2-5.0); ALKALINE PHOSPHATASE 79 u/l (38-126); ANION GAP 10 (6-22 (CALC)); BILIRUBIN, TOTAL 0.3 mg/dL (0.02-1.3); BUN 19 mg/dL (8-23); BUN/CREATININE RATIO 22 (12-20 (CALC)); CARBON DIOXIDE 38 mmol/l (22-30); CHLORIDE 85 mmol/l (95-108); CREATININE 0.9 mg/dL (0.5-1.0); GFR FOR AFR.AMER. > 60 ML/MIN (>=60 (CALC)); GFR OTHER RACES 60 ML/MIN (>=60 (CALC)); MAGNESIUM 2.4 mg/dL (1.6-2.3); POTASSIUM 4.1 mmol/l (3.5-5.1); SGOT/AST 26 u/l (9-36); SODIUM 129 mmol/l (137-146); TOTAL PROTEIN 5.4 g/dL (6.3-8.2)
--- NOTE | 2023-03-08 07:10 | NUR ---
REPORT RECEIVED FROM SNOW LYN
[2023-03-08 07:39] VITALS: BP 124/76
--- NOTE | 2023-03-08 08:09 | NUR ---
RT AT BEDSIDE ADMINISTERING BREATHING TX.
--- NOTE | 2023-03-08 08:30 | NUR ---
PT RESTING IN SEMI FOWLERS POSITION WITH DAUGHTER AT BEDSIDE,A&O X4;ASSESSMENT COMPLETED;PT REPORTS LEFT SHOULDER AND HIP PAIN RATING 8/10 ON THE PAIN SCALE AND REQUESTS PRN PAIN MEDICATION, PT MEDICATED WITH PRN ULTRAM 100MG PO;RESPIRATIONS EVEN AND UNLABORED ON O2 @ 2L VIA NC-PT IS HOME OXYGEN DEPENDENT;ABDOMEN SOFT ON PALPATION AND ACTIVE IN ALL 4 QUADRANTS;STRONG PEDAL PULSES;GENERALIZED BRUISING NOTED BUT SKIN OTHERWISE INTACT;TELE MONITORING IN PLACE;PUREWICK CATHETER PATENT AND DRAINING TO SUCTION WITH EASE;PT BED BATH PROVIDED AND RE-POSITIONED FOR CONFORT;#20G TO RAC FOUND TO BE OCCLUDED, SITE REMOVED WITH CATHETER INTACT AND NEW #22G STARTED TO LEFT HAND ON 2ND ATTEMPT BY THIS WRITTER;PT DENIES ANY ADDITIONAL NEEDS AT THIS TIME AND IS ENCOURAGED TO CALL FOR ASSISTANCE IF NEEDED;FALL PRECAUTIONS REMAIN IN PLACE WITH BED INT THE LOWEST POSITION AND CALL LIGHT IN REACH;FREQUENT ROUNDS MADE.
[2023-03-08 10:06] VITALS: BP 126/72
--- NOTE | 2023-03-08 10:07 | NUR ---
AT BEDSIDE DISCUSSING POC.
--- NOTE | 2023-03-08 11:45 | NUR ---
RT AT BEDSIDE ADMINISTERING BREATHING TX.
--- NOTE | 2023-03-08 11:45 | NUR ---
PT RESTING IN SEMI FOWLERS POSITION EATING LUNCH WITH FAMILY AT BEDSIDE;RESPIRATIONS REMAIN EVEN AND UNLABORED ON O2 @ 2L VIA NC;PT DENIES ANY CURRENT PAIN OR DISCOMFORTS;TELE MONITORING IN PLACE;IV SITE PATENT TO LH AND SCHEDULED SOLUMEDROL PROVIDED PER ORDER;PUREWICK CATHETER IN PLACE;PT ENCOURAGED TO CALL FOR ASSISTANCE IF NEEDED;CALLL LIGHT IN REACH;FREQUENT ROUNDS MADE.
--- NOTE | 2023-03-08 15:15 | NUR ---
RT AT BEDSIDE ADMINISTERING BREATHING TX.
--- NOTE | 2023-03-08 16:05 | NUR ---
PT RESTING IN SEMI FOWLERS POSITION WATCHING TV;RESPIRATIONS EVEN AND UNLABORED ON O2 @ 2L VIA NC;PT DENIES ANY CURRENT PAIN OR NEEDS;IV SITE TO LH PATENT;TELE MONITORING IN PLACE;PUREWICK CATHETER PATENT;PT ENCOURAGED TO CALL FOR ASSISTANCE IF NEEDED;CALL LIGHT IN REACH;FREQUENT ROUNDS MADE.
[2023-03-08 16:25] VITALS: BP 124/67
--- NOTE | 2023-03-08 17:40 | NUR ---
PT MEDICATED WITH PRN ULTRAM 100MG PO PER REQUEST FOR LEFT HIP AND SHOULDER PAIN RATING 8/10 ON THE PAIN SCALE,FREQUENT ROUNDS MADE.
[2023-03-08 19:24] VITALS: BP 158/67
--- NOTE | 2023-03-08 19:41 | NUR ---
BEDSIDE REPORT RECEIVED FROM OFF GOING NURSE. PATIENT AWAKE IN BED. RESPIRATIONS INTERMITTENTLY SHALLOW ON O2 @ 2 LPM VIA NASAL CANNULA. DENIES PAIN OR DISCOMFORT AT THIS TIME. PUREWICK IN PLACE. CALL LIGHT WITHIN REACH.
--- NOTE | 2023-03-08 23:04 | NUR ---
PATIENT IN BED ASLEEP AT THIS TIME. RESPIRATIONS EVEN AND ULABORED ON O2 @ 2LPM VIA NASAL CANNULA. SAFETY MEASURES IN PLACE. CALL LIGHT WITHIN REACH.
[2023-03-08 23:20] VITALS: BP 169/76
[2023-03-09 04:38] VITALS: BP 155/74
[2023-03-09 05:42] LABS: BASO% 0.1 % (0-3); HEMATOCRIT 38.6 % (37.0-47.0); HEMOGLOBIN 12.6 g/dl (12.0-16.0); IMMATURE GRANULOCYTES 1.1 % (0.0-5.0); LYMPH% 4.5 % (15-41); MEAN CELL VOLUME 91.3 fL CALC (80.0-100.0); MEAN CORPUSCULAR HGB 29.8 pG CALC (26.0-32.0); MEAN CORPUSCULAR HGB CONC 32.6 g/dL CAL (32.0-36.0); MONO% 1.6 % (2-13); NEUT# 16.19 thou/uL (2.00-7.15); NEUT% 92.7 % (42-76); RED BLOOD COUNT 4.23 mill/uL (4.20-5.60); RED CELL DISTRI WIDTH 12.3 % (11.5-15.5)
[2023-03-09 06:05] VITALS: BP 155/66
[2023-03-09 06:09] LABS: ALBUMIN 3.1 g/dL (3.2-5.0); ALKALINE PHOSPHATASE 76 u/l (38-126); ANION GAP 9 (6-22 (CALC)); BILIRUBIN, TOTAL 0.3 mg/dL (0.02-1.3); BUN 20 mg/dL (8-23); BUN/CREATININE RATIO 24 (12-20 (CALC)); CARBON DIOXIDE 35 mmol/l (22-30); CHLORIDE 89 mmol/l (95-108); CREATININE 0.8 mg/dL (0.5-1.0); GFR FOR AFR.AMER. > 60 ML/MIN (>=60 (CALC)); GFR OTHER RACES > 60 ML/MIN (>=60 (CALC)); MAGNESIUM 2.3 mg/dL (1.6-2.3); POTASSIUM 4.2 mmol/l (3.5-5.1); SGOT/AST 24 u/l (9-36); SODIUM 128 mmol/l (137-146); TOTAL PROTEIN 5.2 g/dL (6.3-8.2)
--- NOTE | 2023-03-09 08:00 | NUR ---
PT IN BED WITH HOB UP EATING BREAKFAST. PT IS ALERT AND ORIENTED X 3, PT HAS C/O HIP PAIN AT 7/10 ON PAIN SCALE, PRN PAIN MEDICATION GIVEN. PT HAS O2 ON @ 2 LITERS VIA NC. IV SITE TO LH CLEAN AND INTACT, SL. LUNG SOUNDS DIMINISHED. ABD SOFT WITH ACTIVE BS. PT HAS TELE ON WITH ALL LEADS ATTACHED. PT HAS BEDSIDE COMMODE FOR TOILETING NEEDS, UP WITH ASSISTANCE. PT HAS CALL LIGHT WITHIN REACH AND ALL SAFETY MEASURES IN PLACE AT THIS TIME.
[2023-03-09 10:05] VITALS: BP 147/67
[2023-03-09] MEDS ORDERED: PREDNISONE10 MG PO (10:05)
--- NOTE | 2023-03-09 12:14 | NUR ---
PT SITTING UP IN CHAIR EATING LUNCH. PT HAS NO C/O PAIN AT THIS TIME. PT HAS NO CHANGE IN STATUS AT THIS TIME. PT HAS CALL LIGHT WITHIN REACH AND ALL SAFETY MEASURES IN PLACE.
--- NOTE | 2023-03-09 13:34 | NUR ---
Discharge instructions given. Patient verbalizes understanding of same. Discharged in stable condition via Wheelchair to Home with family. All belongings sent with pt.
== END 2023-03-09 13:40 | disposition home health service (06) | DRG 190 ==
LOC: ED 10:55 → ED-I 13:22 → ED 13:42 → MS2 13:43
PROVIDERS: Emergency Medicine; Nurse Practitioner Family; ADMIT Student in an Organized Health Care Education/Training Program; ATTEND Student in an Organized Health Care Education/Training Program
DX: J44.1 Chronic obstructive pulmonary disease with (acute) exacerbation (principal); I50.33 Acute on chronic diastolic (congestive) heart failure; J96.22 Acute and chronic respiratory failure with hypercapnia; I13.0 Hypertensive heart and chronic kidney disease with heart failure and stage 1 through stage 4 chronic kidney disease, or unspecified chronic kidney disease; J96.11 Chronic respiratory failure with hypoxia; N18.30 Chronic kidney disease, stage 3 unspecified; K21.9 Gastro-esophageal reflux disease without esophagitis; I25.10 Atherosclerotic heart disease of native coronary artery without angina pectoris; E03.9 Hypothyroidism, unspecified; G62.9 Polyneuropathy, unspecified; M19.90 Unspecified osteoarthritis, unspecified site; Z99.3 Dependence on wheelchair; Z99.81 Dependence on supplemental oxygen; Z20.822 Contact with and (suspected) exposure to COVID-19

== ENCOUNTER 2023-06-14 18:30 | Inpatient (IN) | payer MEDICARE, BC ==
[~2023-06-14] VITALS: Ht 167.6 cm; Wt 76.4 kg
[2023-06-14] VITALS (19 sets, daily range): BP systolic 142–210; BP diastolic 56–91
[~2023-06-14 18:30] MED LIST changes: +BUDESONID1 IN; +CLARITIN10 M2 PO; +LATANOPROST0.005 % OU; +MONTELUKAST SOD10 MG PO; +TRIAMCINOLON0.11 EX
[2023-06-14 20:38] LABS: BASO% 0.6 % (0-3); EOS% 1.7 % (0-8); HEMATOCRIT 38.5 % (37.0-47.0); HEMOGLOBIN 11.7 g/dl (12.0-16.0); IMMATURE GRANULOCYTES 0.2 % (0.0-5.0); LYMPH% 15.6 % (15-41); MEAN CELL VOLUME 94.8 fL CALC (80.0-100.0); MEAN CORPUSCULAR HGB 28.8 pG CALC (26.0-32.0); MEAN CORPUSCULAR HGB CONC 30.4 g/dL CAL (32.0-36.0); MONO% 6.5 % (2-13); NEUT# 7.52 thou/uL (2.00-7.15); NEUT% 75.4 % (42-76); RED BLOOD COUNT 4.06 mill/uL (4.20-5.60); RED CELL DISTRI WIDTH 12.9 % (11.5-15.5)
[2023-06-14 20:41] LABS: ALBUMIN 3.8 g/dL (3.2-5.0); ALKALINE PHOSPHATASE 93 u/l (38-126); ANION GAP 13 (6-22 (CALC)); BILIRUBIN, TOTAL 0.5 mg/dL (0.02-1.3); BUN 20 mg/dL (8-23); BUN/CREATININE RATIO 25 (12-20 (CALC)); CHLORIDE 84 mmol/l (95-108); CREATININE 0.8 mg/dL (0.5-1.0); GFR FOR AFR.AMER. > 60 ML/MIN (>=60 (CALC)); GFR OTHER RACES > 60 ML/MIN (>=60 (CALC)); POTASSIUM 4.1 mmol/l (3.5-5.1); SGOT/AST 32 u/l (9-36); SODIUM 133 mmol/l (137-146); TOTAL PROTEIN 6.4 g/dL (6.3-8.2)
[2023-06-14 20:56] LABS: CARBON DIOXIDE 40 mmol/l (22-30)
[2023-06-14 21:30] LABS: URINE BILIRUBIN - DIPSTICK Negative (NEGATIVE); URINE BLOOD DIPSTICK Negative (NEGATIVE); URINE GLUCOSE - DIPSTICK Negative (NEGATIVE); URINE KETONE Negative (NEGATIVE); URINE LEUK ESTERASE Negative (NEGATIVE); URINE NITRITE - DIPSTICK Negative (Negative); URINE PROTEIN - DIPSTICK Negative (NEG-TRACE); URINE SPECIFIC GRAVITY 1.015; URINE UROBILINOGEN - DIPSTICK 0.2 E.U./dL (0.2)
[2023-06-14 21:32] LABS: URINE COLOR Yellow
[2023-06-14] MEDS ORDERED: TRAMADOL HYDROC50 M1 PO (22:55)
[2023-06-15] VITALS (25 sets, daily range): BP systolic 136–207; BP diastolic 45–101
[2023-06-16] VITALS (7 sets, daily range): BP systolic 137–164; BP diastolic 59–86
[2023-06-16 07:16] LABS: BASO% 0.1 % (0-3); HEMATOCRIT 35.6 % (37.0-47.0); HEMOGLOBIN 11.2 g/dl (12.0-16.0); IMMATURE GRANULOCYTES 0.5 % (0.0-5.0); LYMPH% 3.7 % (15-41); MEAN CORPUSCULAR HGB 28.9 pG CALC (26.0-32.0); MEAN CORPUSCULAR HGB CONC 31.5 g/dL CAL (32.0-36.0); MONO% 1.8 % (2-13); NEUT# 14.41 thou/uL (2.00-7.15); NEUT% 93.9 % (42-76); RED BLOOD COUNT 3.87 mill/uL (4.20-5.60); RED CELL DISTRI WIDTH 13.1 % (11.5-15.5)
[2023-06-16 07:30] LABS: ALBUMIN 3.7 g/dL (3.2-5.0); ALKALINE PHOSPHATASE 78 u/l (38-126); ANION GAP 10 (6-22 (CALC)); BUN 20 mg/dL (8-23); BUN/CREATININE RATIO 23 (12-20 (CALC)); CARBON DIOXIDE 39 mmol/l (22-30); CHLORIDE 87 mmol/l (95-108); CREATININE 0.9 mg/dL (0.5-1.0); GFR FOR AFR.AMER. > 60 ML/MIN (>=60 (CALC)); GFR OTHER RACES 60 ML/MIN (>=60 (CALC)); MAGNESIUM 2.1 mg/dL (1.6-2.3); POTASSIUM 3.6 mmol/l (3.5-5.1); SGOT/AST 26 u/l (9-36); SODIUM 133 mmol/l (137-146); TOTAL PROTEIN 5.6 g/dL (6.3-8.2)
[2023-06-16 07:38] LABS: BILIRUBIN, TOTAL 0.2 mg/dL (0.02-1.3)
[2023-06-17] VITALS (8 sets, daily range): BP systolic 141–161; BP diastolic 51–83
[2023-06-17 07:20] LABS: BASO% 0.1 % (0-3); HEMATOCRIT 40.1 % (37.0-47.0); HEMOGLOBIN 12.2 g/dl (12.0-16.0); IMMATURE GRANULOCYTES 0.9 % (0.0-5.0); MEAN CELL VOLUME 94.1 fL CALC (80.0-100.0); MEAN CORPUSCULAR HGB 28.6 pG CALC (26.0-32.0); MEAN CORPUSCULAR HGB CONC 30.4 g/dL CAL (32.0-36.0); MONO% 2.3 % (2-13); NEUT# 17.22 thou/uL (2.00-7.15); NEUT% 93.7 % (42-76); RED BLOOD COUNT 4.26 mill/uL (4.20-5.60); RED CELL DISTRI WIDTH 13.7 % (11.5-15.5)
[2023-06-17 07:57] LABS: ALBUMIN 3.6 g/dL (3.2-5.0); ALKALINE PHOSPHATASE 71 u/l (38-126); BUN 20 mg/dL (8-23); BUN/CREATININE RATIO 28 (12-20 (CALC)); CHLORIDE 90 mmol/l (95-108); CREATININE 0.7 mg/dL (0.5-1.0); GFR FOR AFR.AMER. > 60 ML/MIN (>=60 (CALC)); GFR OTHER RACES > 60 ML/MIN (>=60 (CALC)); MAGNESIUM 2.2 mg/dL (1.6-2.3); POTASSIUM 3.6 mmol/l (3.5-5.1); SGOT/AST 26 u/l (9-36); SODIUM 137 mmol/l (137-146); TOTAL PROTEIN 5.6 g/dL (6.3-8.2)
[2023-06-17 08:04] LABS: ANION GAP 14 (6-22 (CALC)); CARBON DIOXIDE 37 mmol/l (22-30)
[2023-06-17 08:05] LABS: BILIRUBIN, TOTAL 0.3 mg/dL (0.02-1.3)
[2023-06-18 01:05] VITALS: BP 123/63
[2023-06-18 04:33] VITALS: BP 143/74
[2023-06-18 05:57] LABS: BASO% 0.1 % (0-3); HEMATOCRIT 41.4 % (37.0-47.0); HEMOGLOBIN 12.7 g/dl (12.0-16.0); IMMATURE GRANULOCYTES 2.1 % (0.0-5.0); LYMPH% 3.2 % (15-41); MEAN CELL VOLUME 94.5 fL CALC (80.0-100.0); MEAN CORPUSCULAR HGB CONC 30.7 g/dL CAL (32.0-36.0); MONO% 2.3 % (2-13); NEUT# 15.07 thou/uL (2.00-7.15); NEUT% 92.3 % (42-76); RED BLOOD COUNT 4.38 mill/uL (4.20-5.60); RED CELL DISTRI WIDTH 13.4 % (11.5-15.5)
[2023-06-18 06:15] LABS: ALBUMIN 3.8 g/dL (3.2-5.0); ALKALINE PHOSPHATASE 73 u/l (38-126); ANION GAP 10 (6-22 (CALC)); BILIRUBIN, TOTAL 0.3 mg/dL (0.02-1.3); BUN 22 mg/dL (8-23); BUN/CREATININE RATIO 32 (12-20 (CALC)); CARBON DIOXIDE 39 mmol/l (22-30); CHLORIDE 90 mmol/l (95-108); CREATININE 0.7 mg/dL (0.5-1.0); GFR FOR AFR.AMER. > 60 ML/MIN (>=60 (CALC)); GFR OTHER RACES > 60 ML/MIN (>=60 (CALC)); MAGNESIUM 2.2 mg/dL (1.6-2.3); POTASSIUM 3.6 mmol/l (3.5-5.1); SGOT/AST 36 u/l (9-36); SODIUM 136 mmol/l (137-146); TOTAL PROTEIN 5.8 g/dL (6.3-8.2)
[2023-06-18 06:42] VITALS: BP 153/70
[2023-06-18 09:26] VITALS: BP 137/65
[2023-06-18] MEDS ORDERED: PREDNISONE10 MG PO (09:40)
[2023-06-18 10:44] VITALS: BP 115/54
== END 2023-06-18 15:40 | DRG 291 ==
LOC: ED 18:30 → MS2 06-15 01:11
PROVIDERS: Family Medicine; Nurse Practitioner Family; ADMIT Student in an Organized Health Care Education/Training Program; ATTEND Student in an Organized Health Care Education/Training Program
DX: I13.0 Hypertensive heart and chronic kidney disease with heart failure and stage 1 through stage 4 chronic kidney disease, or unspecified chronic kidney disease (principal); I50.33 Acute on chronic diastolic (congestive) heart failure; J96.22 Acute and chronic respiratory failure with hypercapnia; J44.1 Chronic obstructive pulmonary disease with (acute) exacerbation; J96.11 Chronic respiratory failure with hypoxia; N18.30 Chronic kidney disease, stage 3 unspecified; I25.10 Atherosclerotic heart disease of native coronary artery without angina pectoris; E03.9 Hypothyroidism, unspecified; K21.9 Gastro-esophageal reflux disease without esophagitis; K59.01 Slow transit constipation; G62.9 Polyneuropathy, unspecified; H40.9 Unspecified glaucoma; T48.996A Underdosing of other agents primarily acting on the respiratory system, initial encounter; Z91.120 Patient's intentional underdosing of medication regimen due to financial hardship; Z99.81 Dependence on supplemental oxygen; Z87.891 Personal history of nicotine dependence; Z20.822 Contact with and (suspected) exposure to COVID-19
CPT/HCPCS: J3475; P9047

== ENCOUNTER 2023-07-19 17:19 | Emergency (ER) | payer MEDICARE, BC ==
[~2023-07-19] VITALS: Ht 167.6 cm; Wt 80.2 kg
[2023-07-19] VITALS (14 sets, daily range): BP systolic 121–170; BP diastolic 43–92
[~2023-07-19 17:19] MED LIST changes: +TRAMADOL HYDROC50 M1 PO
[2023-07-19 17:48] LABS: BASO% 0.2 % (0-3); EOS% 0.2 % (0-8); HEMATOCRIT 40.1 % (37.0-47.0); HEMOGLOBIN 12.3 g/dl (12.0-16.0); IMMATURE GRANULOCYTES 0.2 % (0.0-5.0); LYMPH% 2.6 % (15-41); MEAN CORPUSCULAR HGB 28.5 pG CALC (26.0-32.0); MEAN CORPUSCULAR HGB CONC 30.7 g/dL CAL (32.0-36.0); NEUT# 14.36 thou/uL (2.00-7.15); NEUT% 90.8 % (42-76); RED BLOOD COUNT 4.31 mill/uL (4.20-5.60); RED CELL DISTRI WIDTH 12.8 % (11.5-15.5)
[2023-07-19 18:05] LABS: ALBUMIN 3.9 g/dL (3.2-5.0); BUN 18 mg/dL (8-23); BUN/CREATININE RATIO 20 (12-20 (CALC)); CHLORIDE 86 mmol/l (95-108); CREATININE 0.9 mg/dL (0.5-1.0); GFR FOR AFR.AMER. > 60 ML/MIN (>=60 (CALC)); GFR OTHER RACES 60 ML/MIN (>=60 (CALC)); LIPASE 176 u/l (23-300); SODIUM 133 mmol/l (137-146); TOTAL PROTEIN 6.4 g/dL (6.3-8.2)
[2023-07-19 18:15] LABS: POTASSIUM 4.4 mmol/l (3.5-5.1)
[2023-07-19 18:16] LABS: ALKALINE PHOSPHATASE 303 u/l (38-126); ANION GAP 7 (6-22 (CALC)); BILIRUBIN, TOTAL 1.9 mg/dL (0.02-1.3); CARBON DIOXIDE 44 mmol/l (22-30); SGOT/AST 919 u/l (9-36)
== END 2023-07-19 23:30 | disposition short-term general hospital (02) ==
LOC: ED 17:19
PROVIDERS: Family Medicine
DX: K80.21 Calculus of gallbladder without cholecystitis with obstruction (principal); I13.0 Hypertensive heart and chronic kidney disease with heart failure and stage 1 through stage 4 chronic kidney disease, or unspecified chronic kidney disease; I50.9 Heart failure, unspecified; N18.30 Chronic kidney disease, stage 3 unspecified; I48.91 Unspecified atrial fibrillation; Z99.81 Dependence on supplemental oxygen; G62.9 Polyneuropathy, unspecified; Z87.891 Personal history of nicotine dependence
CPT/HCPCS: Q9967